=== PATIENT | female | born 1955 | race Caucasian/White ===

== ENCOUNTER 2020-11-15 14:05 | Observation (INO) | payer OTHER ==
--- OUTSIDE RECORDS SUMMARY | 2020-11-15 14:08 | XMS REPORT | Continuity of Care Document ---
:1955 Author Organization [facility] t Address [address] [place] [address] [address] [place] [address] Care Team Providers Name Role Phone Unavailable Unavailable Unavailable Problems This patient has no known problems. Allergies, Adverse Reactions, Alerts This patient has no known allergies or adverse reactions. Medications This patient has no known medications. Procedures This patient has no known procedures. Encounters Start End Encounter Admission Attending Care Care Encounter Source Date/Time Date/Time Type Type Clinicians Facility Department ID 2020-11-02 2020-11-02 Outpatient [facility] [id number] [facility] 00:00:00 00[facility]00[facility]00 [facility] 2020-10-02 2020-10-02 Outpatient [facility] [id number] [facility] St 00:00:00 00[facility]00[facility]00 [facility] 2020-10-02 2020-10-02 Outpatient [facility] [id number] [facility] St 00:00:00 00:00:00 [facility] - [facility] Results This patient has no known results.
--- NOTE | 2020-11-15 15:35 | RAD REPORT ---
EXAM DESCRIPTION: CT - C Spine Wo Con - 11/15/2020 3:12 pm CLINICAL HISTORY: Right arm radiculopathy. Neck pain COMPARISON: None. TECHNIQUE: Computed axial tomography of the cervical spine were obtained with sagittal and coronal r econstruction images generated and reviewed. All CT scans are performed using dose optimization technique as appropriate and may include automated exposure control or mA/KV adjustment according to patient size. FINDINGS: A cervical fracture is not seen. No dislocation. Slight anterior subluxation C3 on C4, C4 on C5 and C5 on C6 Spondylosis C3-4 results in moderate narrowing of left neural foramina. Small right posterolateral disc herniation C6-7 Scoliosis involves the neck IMPRESSION: A cervical fracture is not seen. Spondylosis resulting in moderate left foraminal stenosis C3-4 Small right posterolateral disc herniation C6-7 If the patient continues have symptoms to suggest spinal cord/spinal canal pathology then MRI would b e recommended.
--- NOTE | 2020-11-15 15:42 | RAD REPORT ---
EXAM DESCRIPTION: Ananya Single View11/15/2020 3:02 pm CLINICAL HISTORY: Chest pain COMPARISON: none FINDINGS: The lungs appear clear of acute infiltrate. The heart is normal size IMPRESSION: No acute abnormalities displayed
[2020-11-15 15:49] LABS: Basophils % 0.8 % (0-1.3); Hematocrit 49.5 % (36.0-45.0); Lymphocytes % 25.5 % (15.3-44.8); MPV 8.6 fL (7.6-11.3); RBC Red Blood Cell Count 5.36 M/uL (3.86-4.86)
[2020-11-15 15:52] LABS: Protime INR 0.99
[2020-11-15 16:15] LABS: ALT/SGPT 38 U/L (12-78); AST/SGOT 20 U/L (15-37); Albumin 3.9 g/dL (3.4-5.0); Alkaline Phosphatase 77 U/L (45-117); BUN Blood Urea Nitrogen 18 mg/dL (7-18); Bicarbonate 24 mmol/L (21-32); Bilirubin Direct 0.1 mg/dL (0-0.2); Bilirubin Total 0.4 mg/dL (0.2-1.0); Glucose Level 108 mg/dL (74-106); Lipase 218 U/L (73-393); Magnesium 2.2 mg/dL (1.8-2.4); NT PRO-BNP 41 pg/mL (<125); Potassium 3.9 mmol/L (3.5-5.1); Protein, Total 7.6 g/dL (6.4-8.2); Sodium Level 140 mmol/L (136-145); Troponin (Emerg Dept Use Only) < 0.02 ng/mL (0.0-0.045)
--- NOTE | 2020-11-15 16:15 | ER ---
Nurse's Notes [facility] Name: Renetta Mckeon Age: 65 yrs Sex: Female : 1955 Arrival Date: 11/15/2020 Time: 14:13 Bed 17 Private MD: Diagnosis: Chest pain, unspecified;Dizziness and giddiness;Syncope and collapse-near Presentation: 11/15 14:27 Chief complaint: Patient states: woke up with swollen glands in neck then became em dizzy/pale/sweaty, denies chest pain or fever, also reports right shoulder pain that radiates into back, is scheduled to have a study done on neck on Friday. Coronavirus screen: Client denies travel out of the [place] in the last 14 days. Ebola Screen: Patient negative for fever greater than or equal to 101.5 degrees Fahrenheit, and additional compatible Ebola Virus Disease symptoms Patient denies exposure to infectious person. Patient denies travel to an Ebola-affected area in the 21 days before illness onset. No symptoms or risks identified at this time. Initial Sepsis Screen: Does the patient meet any 2 criteria? No. Patient's initial sepsis screen is negative. Does the patient have a suspected source of infection? No. Patient's initial sepsis screen is negative. Risk Assessment: Do you want to hurt yourself or someone else? Patient reports no desire to harm self or others. Onset of symptoms was November 15, 2020. 14:27 Method Of Arrival: Wheelchair em 14:27 Acuity: LEE 3 em Triage Assessment: 15:55 General: Appears in no apparent distress. Behavior is calm, cooperative, appropriate tr6 for age. Pain: Complains of pain in c/o throat pain. Respiratory: No deficits noted. Breath sounds are clear. Historical: - Allergies: 14:32 No Known Allergies; em - PMHx: 14:32 COPD; Cataracts; em - PSHx: 14:32 Hysterectomy; Appendectomy; right breast augmentation; em - Immunization history:: Adult Immunizations up to date. - Social history:: Smoking status: Patient reports the use of cigarette tobacco products, smokes one pack cigarettes per day. - Family history:: not pertinent. Screenin:55 Abuse screen: Denies threats or abuse. Denies injuries from another. Nutritional tr6 screening: No deficits noted. Tuberculosis screening: No symptoms or risk factors identified. Fall Risk None identified. Assessment: 15:16 Reassessment: pt returned from CT. tr6 15:55 Cardiovascular: Capillary refill < 3 seconds. Respiratory: Airway is patent. tr6 Vital Signs: 14:27 BP 112 / 70; Pulse 70; Resp 18; Temp 96.8; Pulse Ox 98% on R/A; Weight 63.5 kg; Height em 5 ft. 2 in. (157.48 cm); Pain 7/10; 14:27 Body Mass Index 25.61 (63.50 kg, 157.48 cm) em ED Course: 14:13 Patient arrived in ED. ds1 14:30 Triage completed. em 14:32 Arm band placed on. em 14:34 Julian Gorman MD is Attending Physician. [facility] 14:40 Elva Manning, VALDEMAR is Primary Nurse. tr6 15:02 XRAY Chest (1 view) In Process Unspecified. EDMS 15:11 CT C Spine In Process Unspecified. EDMS 15:45 Flu Sent. em1 15:45 Strep Sent. em1 15:45 Initial lab(s) drawn, by nm, sent to lab. COVID swab sent to lab. Flu and/or RSV swab em1 sent to lab. Strep swab sent to lab. Inserted saline lock: 20 gauge in right forearm, using aseptic technique. Blood collected. 15:55 No provider procedures requiring assistance completed. tr6 15:56 Patient has correct armband on for positive identification. Bed in low position. Call tr6 light in reach. Side rails up X 1. 16:14 Eliel Buckley DO is Hospitalizing Provider. kevin 16:18 EKG done, by ED staff, reviewed by Julian Gorman MD. em1 16:42 US Carotid Artery Bilateral In Process Unspecified. EDMS 16:48 CT Aorta for Dissection In Process Unspecified. EDMS 16:48 Soft Tissue Neck W/Contr CT In Process Unspecified. EDMS 21:23 Patient admitted, IV remains in place. jm8 Administered Medications: 20:11 Drug: NS 0.9% 1000 ml Route: IV; Rate: 125 ml/hr; Site: right hand; 8 20:11 Drug: Rocephin (cefTRIAXone) 1 grams Route: IV; Rate: per protocol; Site: right hand; 8 20:11 Follow up: Response: No adverse reaction 8 20:11 Drug: Aspirin 162 mg Route: PO; 8 20:11 Follow up: Response: No adverse reaction [facility] Outcome: 16:15 Decision to Hospitalize by Provider. kevin 21:23 Admitted to Med/surg accompanied by tech, via wheelchair, with chart. [facility] 21:23 Condition: good 21:23 Instructed on the need for admit. 21:24 Patient left the ED. 8 Signatures: Dispatcher [employer] Julian Pederson MD MD cha Munoz, Edgar, RN RN Katina Calle ds1 John Kelly em1 Manpreet Arroyo RN RN Elva Bass RN RN tr6 Corrections: (The following items were deleted from the chart) 16:10 15:45 CORONAVIRUS+ drawn and sent. em1 [facility]
--- NOTE | 2020-11-15 16:16 | EDPHYS ---
Physician Documentation [facility] Name: Renetta Mckeon Age: 65 yrs Sex: Female : 1955 Arrival Date: 11/15/2020 Time: 14:13 Bed 17 Private MD: ED Physician Julian Gorman HPI: 11/15 16:10 This 65 yrs old Female presents to ER via Wheelchair with complaints of kevin Congestion, Dizziness. 16:10 The patient presents with dizziness, generalized weakness, lightheadedness. Onset: The kevin symptoms/episode began/occurred just prior to arrival. Context: occurred at home. Modifying factors: The symptoms are alleviated by nothing, the symptoms are aggravated by nothing. Associated signs and symptoms: Pertinent positives: chest pain. Severity of symptoms: At their worst the symptoms were mild in the emergency department the symptoms are unchanged. Patient's baseline: Neuro: alert and fully oriented. The patient has not experienced similar symptoms in the past. Historical: - Allergies: 14:32 No Known Allergies; em - PMHx: 14:32 COPD; Cataracts; em - PSHx: 14:32 Hysterectomy; Appendectomy; right breast augmentation; em - Immunization history:: Adult Immunizations up to date. - Social history:: Smoking status: Patient reports the use of cigarette tobacco products, smokes one pack cigarettes per day. - Family history:: not pertinent. ROS: 16:10 Constitutional: Negative for fever, chills, and weight loss, Eyes: Negative for injury, kevin pain, redness, and discharge, ENT: Negative for injury, pain, and discharge, Respiratory: Negative for shortness of breath, cough, wheezing, and pleuritic chest pain, Abdomen/GI: Negative for abdominal pain, nausea, vomiting, diarrhea, and constipation, Back: Negative for injury and pain, : Negative for injury, bleeding, discharge, and swelling, MS/Extremity: Negative for injury and deformity, Skin: Negative for injury, rash, and discoloration, Neuro: Negative for headache, weakness, numbness, tingling, and seizure, Psych: Negative for depression, anxiety, suicide ideation, homicidal ideation, and hallucinations, Allergy/Immunology: Negative for hives, rash, and allergies, Endocrine: Negative for neck swelling, polydipsia, polyuria, polyphagia, and marked weight changes. 16:10 Neck: Positive for pain at rest, swelling, swollen nodes, tenderness. 16:10 Cardiovascular: Positive for chest pain. Exam: 16:10 Constitutional: This is a well developed, well nourished patient who is awake, alert, kevin and in no acute distress. Head/Face: Normocephalic, atraumatic. Eyes: Pupils equal round and reactive to light, extra-ocular motions intact. Lids and lashes normal. Conjunctiva and sclera are non-icteric and not injected. Cornea within normal limits. Periorbital areas with no swelling, redness, or edema. ENT: Nares patent. No nasal discharge, no septal abnormalities noted. Tympanic membranes are normal and external auditory canals are clear. Oropharynx with no redness, swelling, or masses, exudates, or evidence of obstruction, uvula midline. Mucous membranes moist. Neck: Trachea midline, no thyromegaly or masses palpated, and no cervical lymphadenopathy. Supple, full range of motion without nuchal rigidity, or vertebral point tenderness. No Meningismus. Chest/axilla: Normal chest wall appearance and motion. Nontender with no deformity. No lesions are appreciated. Cardiovascular: Regular rate and rhythm with a normal S1 and S2. No gallops, murmurs, or rubs. Normal PMI, no JVD. No pulse deficits. Respiratory: Lungs have equal breath sounds bilaterally, clear to auscultation and percussion. No rales, rhonchi or wheezes noted. No increased work of breathing, no retractions or nasal flaring. Abdomen/GI: Soft, non-tender, with normal bowel sounds. No distension or tympany. No guarding or rebound. No evidence of tenderness throughout. Back: No spinal tenderness. No costovertebral tenderness. Full range of motion. Skin: Warm, dry with normal turgor. Normal color with no rashes, no lesions, and no evidence of cellulitis. MS/ Extremity: Pulses equal, no cyanosis. Neurovascular intact. Full, normal range of motion. Neuro: Awake and alert, GCS 15, oriented to person, place, time, and situation. Cranial nerves II-XII grossly intact. Motor strength 5/5 in all extremities. Sensory grossly intact. Cerebellar exam normal. Normal gait. Psych: Awake, alert, with orientation to person, place and time. Behavior, mood, and affect are within normal limits. 16:10 Musculoskeletal/extremity: DVT Exam: No signs of deep vein thrombosis. no pain, no swelling, no tenderness, negative Homans' sign noted on exam, no appreciated bluish discoloration, no erythema, no increased warmth. 16:39 ECG was reviewed by the Attending Physician. [facility] Vital Signs: 14:27 BP 112 / 70; Pulse 70; Resp 18; Temp 96.8; Pulse Ox 98% on R/A; Weight 63.5 kg; Height em 5 ft. 2 in. (157.48 cm); Pain 7/10; 14:27 Body Mass Index 25.61 (63.50 kg, 157.48 cm) em MDM: 14:34 Patient medically screened. [facility] 16:12 Differential diagnosis: cardiac arrhythmia, generalized weakness, idiopathic dizziness, kevin near-syncope. Data reviewed: vital signs, nurses notes, lab test result(s), EKG, radiologic studies, CT scan, plain films. Data interpreted: monitoring and evaluation advisor: rate is 70 beats/min, rhythm is regular, Pulse oximetry: on room air is 98 %. Test interpretation: by ED physician or midlevel provider: ECG, plain radiologic studies. Counseling: I had a detailed discussion with the patient and/or guardian regarding: the historical points, exam findings, and any diagnostic results supporting the discharge/admit diagnosis, lab results, radiology results, the need for further work-up and treatment in the hospital. 11/15 14:47 Order name: Basic Metabolic Panel; Complete Time: 16:34 [facility] 11/15 14:47 Order name: CBC with Diff; Complete Time: 16:03 [facility] 11/15 14:47 Order name: LFT's; Complete Time: 16:34 [facility] 11/15 14:47 Order name: Magnesium; Complete Time: 16:34 [facility] 11/15 14:47 Order name: NT PRO-BNP; Complete Time: 16:34 [facility] 11/15 14:47 Order name: PT-INR; Complete Time: 16:03 [facility] 11/15 14:47 Order name: Troponin (emerg Dept Use Only); Complete Time: 16:34 [facility] 11/15 14:47 Order name: Urine Culture [facility] 11/15 14:47 Order name: Lipase; Complete Time: 16:34 [facility] 11/15 14:47 Order name: Flu [facility] 11/15 14:47 Order name: Strep; Complete Time: 16:34 [facility] 11/15 16:08 Order name: Blood Culture Adult (2) [facility] 11/15 16:17 Order name: Throat Culture [facility] 11/15 14:47 Order name: XRAY Chest (1 view); Complete Time: 16:03 [facility] 11/15 14:47 Order name: EKG; Complete Time: 14:47 [facility] 11/15 14:47 Order name: Cardiac monitoring; Complete Time: 15:52 [facility] 11/15 14:47 Order name: EKG - Nurse/Tech; Complete Time: 16:18 [facility] 11/15 14:47 Order name: IV Saline Lock; Complete Time: 15:45 [facility] 11/15 14:47 Order name: Labs collected and sent; Complete Time: 15:45 [facility] 11/15 14:47 Order name: CT C Spine; Complete Time: 16:03 [facility] 11/15 16:08 Order name: US Carotid Artery Bilateral [facility] 11/15 16:08 Order name: CT Aorta for Dissection [facility] 11/15 16:38 Order name: Soft Tissue Neck W/Contr CT [facility] 11/15 16:40 Order name: EKG; Complete Time: 16:41 [facility] 11/15 16:55 Order name: COVID-19/FLU A+B [facility] 11/15 20:44 Order name: Troponin I [facility] 11/15 14:47 Order name: O2 Per Protocol; Complete Time: 15:52 [facility] 11/15 14:47 Order name: O2 Sat Monitoring; Complete Time: 15:52 [facility] 11/15 16:40 Order name: EKG - Nurse/Tech; Complete Time: 19:40 [facility] EC:39 Rate is 54 beats/min. Rhythm is regular. QRS [place] is Normal. VT interval is normal. QRS kevin interval is normal. QT interval is normal. No Q waves. T waves are Normal. No ST changes noted. Clinical impression: NSR w/ Non-specific ST/T Changes and Sinus bradycardia. Administered Medications: 20:11 Drug: NS 0.9% 1000 ml Route: IV; Rate: 125 ml/hr; Site: right hand; jm8 20:11 Drug: Rocephin (cefTRIAXone) 1 grams Route: IV; Rate: per protocol; Site: right hand; jm8 20:11 Follow up: Response: No adverse reaction 8 20:11 Drug: Aspirin 162 mg Route: PO; jm8 20:11 Follow up: Response: No adverse reaction jm8 Disposition: 11/15/20 16:15 Hospitalization ordered by Eliel Buckley for Observation. Preliminary diagnosis are Chest pain, unspecified, Dizziness and giddiness, Syncope and collapse - near. - Bed requested for Telemetry/MedSurg (observation). - Status is Observation. jm8 - Condition is Stable. - Problem is new. - Symptoms have improved. Signatures: Dispatcher [employer] [facility] Radha Post RN RN dw Anderson, Corey, MD MD cha Munoz, Edgar, RN Manpreet Aguilar RN VALDEMAR sandy Corrections: (The following items were deleted from the chart) 16:10 14:47 CORONAVIRUS+MR.LAB.BRZ ordered. [facility] 18:16 16:15 Hospitalization Ordered by Eliel Buckley DO for Observation. Preliminary diagnosis is Chest pain, unspecified; Dizziness and giddiness; Syncope and collapse - near. Bed requested for Telemetry/MedSurg (observation). Status is Observation. Condition is Stable. Problem is new. Symptoms have improved. [facility] 18:16 18:16 11/15/2020 16:15 Hospitalization Ordered by Eliel Buckley DO for Observation. Preliminary diagnosis is Chest pain, unspecified; Dizziness and giddiness; Syncope and collapse - near. Bed requested for Telemetry/MedSurg (observation). Status is Observation. Condition is Stable. Problem is new. Symptoms have improved. 21:24 18:16 11/15/2020 16:15 Hospitalization Ordered by Eliel Buckley DO for Observation. [facility] Preliminary diagnosis is Chest pain, unspecified; Dizziness and giddiness; Syncope and collapse - near. Bed requested for Telemetry/MedSurg (observation). Status is Observation. Condition is Stable. Problem is new. Symptoms have improved.
[2020-11-15 16:55] LABS: SARS-COV-2 RT PCR NEGATIVE (NEGATIVE)
--- NOTE | 2020-11-15 17:04 | RAD REPORT ---
EXAM DESCRIPTION: USCarotid Artery Bilateral11/15/2020 4:42 pm CLINICAL HISTORY: Dizziness COMPARISON: None FINDINGS: The velocity of the right internal carotid artery equals 109 cm/sec. The right ICA/CCA rat io 2 The velocity of the left internal carotid artery equals 100 cm/sec. The left ICA/CCA ratio 1.4 Mild plaque is present within the common and internal carotid arteries. Marked plaque within the left external carotid artery The vertebral arteries demonstrate antegrade flow IMPRESSION: Mild plaque within the common and internal carotid arteries without evidence of a hemody namically significant stenosis Severe stenosis left external carotid artery NASCET criteria used. Mild 0-49% stenosis Moderate 50-69% stenosis Severe 70-99% stenosis
--- NOTE | 2020-11-15 17:17 | RAD REPORT ---
EXAM DESCRIPTION: CT - Angio Aorta For Dissection - 11/15/2020 4:48 pm CLINICAL HISTORY: . Chest and abdominal pain COMPARISON: None TECHNIQUE: Computed tomography angiography of the chest, abdomen pelvis were obtained. 100 cc Isovue 370 was administered intravenously. Coronal and sagittal reconstruction were performed. MIP 3D reconstruction was performed All CT scans are performed using dose optimization technique as appropriate and may include automated exposure control or mA/KV adjustment according to patient size. FINDINGS: An aortic dissection is not seen. An aortic aneurysm is not displayed. The celiac, SMA and EVANS are patent . Mild calcified plaque is present within the arteries. A lung consolidation is not present. A pericardial effusion is not seen. A pleural effusion is not n oted. Fatty liver Spleen, pancreas adrenals kidneys demonstrate no significant abnormality. No evidence of diverticulitis. IMPRESSION: Negative for an aortic dissection.
--- NOTE | 2020-11-15 17:24 | RAD REPORT ---
EXAM DESCRIPTION: CT - Soft Tissue Neck W/Contr - 11/15/2020 4:48 pm CLINICAL HISTORY: Neck pain/facial pain COMPARISON: None. TECHNIQUE: Computed axial tomography of the neck was obtained. 50 cc Isovue 300 was administered in travenously. Coronal and sagittal reconstruction was performed. All CT scans are performed using dose optimization technique as appropriate and may include automated exposure control or mA/KV adjustment according to patient size. FINDINGS: The pharynx, tongue base, larynx and subglottic trachea appear unremarkable The parotid, submandibular and thyroid glands appear unremarkable. Subcentimeter lymph nodes bilaterally Moderate ethmoid sinusitis. Marked stenosis proximal left external carotid artery Scoliosis involves cervical spine IMPRESSION: Moderate ethmoid sinusitis. Marked stenosis proximal left external carotid artery
[2020-11-15] MEDS ORDERED: ALBUTEROL 2.5 MG/3 ML NEB SOL NEB PRN (17:45)
[2020-11-15] MEDS ORDERED: ONDANSETRON 4 MG/2 ML VIAL IV PRN (17:45)
[2020-11-15] MEDS ORDERED: ACETAMINOPHEN 500 MG TAB PO PRN (17:45)
[2020-11-15] MEDS ORDERED: TRAMADOL HCL 50 MG TAB PO PRN (17:53)
--- NOTE | 2020-11-15 17:55 | P.HP ---
Certification for Inpatient Patient admitted to: Observation With expected LOS: <2 Midnights Patient will require the following post-hospital care: None Practitioner: I am a practitioner with admitting privileges, knowledge of patient current condition, hospital course, and medical plan of care. Services: Services provided to patient in accordance with Admission requirements found in Title 42 Section 412.3 of the Code of Federal Regulations Patient History Date of Service: 11/15/20 Reason for admission: Chest pain History of Present Illness: Patient is a 65-year-old female with a PMHx significant for COPD and nicotine dependence who presents with complaint of chest pain located in the right chest wall onset this morning. Patient also reports neck pain and swelling. Patient rated chest pain as 7/10 in severity and described pain as sharp in quality. Patient reports that neck pain radiates to her right shoulder. Patient reports associated signs or symptoms of headache, facial pain, dizziness, nausea, diaphoresis, sore throat and cough. Patient denies any other sign and symptoms. Symptoms are aggravated or relived by nothing. Patient decided to present to the hospital due to worsening symptoms. Home medications list reviewed: No - Social History Smoking Status: Current every day smoker Smoking therapy provided: Yes Patient receptive to therapy: Yes Alcohol use: Yes CD- Drugs: No Place of Residence: Home Review of Systems General: Unremarkable (Diaphoresis ) Eyes: Unremarkable ENT: Nose Congestion, Throat Pain, Other (Neck pain\swelling, facial pain ) Respiratory: Cough Cardiovascular: Chest Pain, Other (Dizziness ) Gastrointestinal: Nausea Genitourinary: Unremarkable Musculoskeletal: Shoulder Pain Integumentary: Unremarkable Neurological: Unremarkable Lymphatics: Unremarkable Physical Examination - Physical Exam General: Alert, In no apparent distress, Oriented x3 HEENT: Atraumatic, PERRLA, Mucous membr. moist/pink, EOMI, Sclerae nonicteric Neck: 2+ carotid pulse no bruit, No LAD, Other (Neck swelling ), Without JVD or thyroid abnormality Respiratory: Clear to auscultation bilaterally, Normal air movement Cardiovascular: No edema, Regular rate/rhythm, Normal S1 S2 Capillary refill: <2 Seconds Gastrointestinal: Normal bowel sounds, Non-distended, No tenderness Musculoskeletal: No tenderness, Tenderness (Right shoulder tenderness ) Integumentary: No rashes Neurological: Normal gait, Normal speech, Normal strength at 5/5 x4 extr, Normal tone, Normal affect Lymphatics: Other (Cervical lymphadenopathy ) External genitalia: Deferred Rectal: Deferred - Studies Laboratory Data (last 24 hrs) 11/15/20 15:35: PT 11.4, INR 0.99 11/15/20 15:35: WBC 7.80, Hgb 16.2 H, Hct 49.5 H, Plt Count 241 11/15/20 15:35: Sodium 140, Potassium 3.9, BUN 18, Creatinine 0.68, Glucose 108 H, Magnesium 2.2, Total Bilirubin 0.4, AST 20, ALT 38, Alkaline Phosphatase 77, Lipase 218 Microbiology Data (last 24 hrs): 11/15/20 15:40 Throat Group A Streptococcus Rapid Screen - Final Assessment and Plan - Plan --Chest pain. To rule out ACS. Chest pain likely atypical. We will trend troponin. Echocardiogram pending. Telemetry to monitor for any significant arrhythmia. Continue supportive care. --Neck\facial pain. Throat cultures pending. CT neck indicates Moderate ethmoid sinusitis. Patient placed on nasal steroid. We will manage pain with current pain medication regimen. --Left carotid artery stenosis. As noted on imaging. Patient is asymptomatic. Patient to follow up with a vascular surgeon O/P. Patient placed on aspirin and statin. --COPD. Stable. Neb treatment with albuterol prn. --PERERA. Tylenol prn --Nausea. Antiemetics on board. --Nicotine dependence. Patient counseled on tobacco cessation. Refuses nicotine patch. --Moderate left Cervical foraminal stenosis. As noted on imaging. Patient placed on steroid and flexeril prn. Patient to f\u with a Neurosurgeon surgeon O\P. --DVT prophylaxis with Heparin subQ Discharge Plan: Home Plan to discharge in: 48 Hours - Advance Directives Does patient have a Living Will: No Does patient have a Durable POA for Healthcare: No - Code Status/Comfort Care Code Status Assessed: Yes Code Status: Full Code Critical Care: No
[2020-11-15] MEDS ORDERED: CYCLOBENZAPRINE 10 MG TAB PO PRN (18:10)
[2020-11-15] MEDS ORDERED: ASPIRIN 81 MG CHEWABLE TABLET ONE (20:02)
[2020-11-15] MEDS ORDERED: NA CHLORIDE 0.9% 1,000 ML ONE (20:02)
[2020-11-15] MEDS ORDERED: CEFTRIAXONE/SWI 1gm 1 GM/10 ML SYR ONE (20:02)
[2020-11-15] MEDS ORDERED: ATORVASTATIN 40 MG TAB PO SCH (21:00)
[2020-11-15] MEDS: FLUTICASONE 50MCG NASAL SPRAY NAS SCH (21:00)
[2020-11-15 21:38] VITALS: BMI 26.0
[2020-11-15 21:59] LABS: Thyroid Stimulating Hormone 3.37 uIU/mL (0.360-3.740)
[2020-11-15 23:09] LABS: Urine Appearance CLEAR (Clear); Urine Bilirubin NEGATIVE (Negataive); Urine Blood NEGATIVE (Negative); Urine Color YELLOW (Yellow); Urine Glucose NEGATIVE (Negative); Urine Protein NEGATIVE (Negative); Urine Specific Gravity >=1.030 (1.005-1.030); Urine Urobilinogen 0.2 mg/dL (0.2-1.0)
[2020-11-15 23:18] LABS: Urine Microscopic Reflex NO UMIC
[2020-11-16] MEDS: HEPARIN 5000 UNIT/ML 1 ML VIAL SQ SCH ×2 (01:01→08:17)
[2020-11-16] MEDS: METHYLPREDNISOLONE 40 MG INJ IV SCH ×2 (01:01→08:17)
[2020-11-16 06:33] LABS: Potassium 4.4 mmol/L (3.5-5.1)
[2020-11-16 08:11] VITALS: BP 158/70; TEMP 97.2
[2020-11-16] MEDS: FLUTICASONE 50MCG NASAL SPRAY NAS SCH (08:19)
--- NOTE | 2020-11-16 08:21 | P.DS ---
Admission Date: 11/15/20 Discharge Date: 11/16/20 Primary Care Provider: Dr. Garcia Disposition: ROUTINE DISCHARGE Discharge Condition: GOOD Reason for Admission: Chest pain Consultations: Cardiology-Dr. Puga Procedures: COVID: Negative CT scan: CLINICAL HISTORY: Right arm radiculopathy. Neck pain COMPARISON: None. TECHNIQUE: Computed axial tomography of the cervical spine were obtained with sagittal and coronal reconstruction images generated and reviewed. All CT scans are performed using dose optimization technique as appropriate and may include automated exposure control or mA/KV adjustment according to patient size. FINDINGS: A cervical fracture is not seen. No dislocation. Slight anterior subluxation C3 on C4, C4 on C5 and C5 on C6 Spondylosis C3-4 results in moderate narrowing of left neural foramina. Small right posterolateral disc herniation C6-7 Scoliosis involves the neck IMPRESSION: A cervical fracture is not seen. Spondylosis resulting in moderate left foraminal stenosis C3-4 Small right posterolateral disc herniation C6-7 Carotid doppler: FINDINGS: The velocity of the right internal carotid artery equals 109 cm/sec. The right ICA/CCA ratio 2 The velocity of the left internal carotid artery equals 100 cm/sec. The left ICA/CCA ratio 1.4 Mild plaque is present within the common and internal carotid arteries. Marked plaque within the left external carotid artery The vertebral arteries demonstrate antegrade flow IMPRESSION: Mild plaque within the common and internal carotid arteries without evidence of a hemodynamically significant stenosis Severe stenosis left external carotid artery NASCET criteria used. Mild 0-49% stenosis Moderate 50-69% stenosis Severe 70-99% stenosis CT neck: FINDINGS: The pharynx, tongue base, larynx and subglottic trachea appear unremarkable The parotid, submandibular and thyroid glands appear unremarkable. Subcentimeter lymph nodes bilaterally Moderate ethmoid sinusitis. Marked stenosis proximal left external carotid artery Scoliosis involves cervical spine IMPRESSION: Moderate ethmoid sinusitis. Marked stenosis proximal left external carotid artery CT Dissection: FINDINGS: An aortic dissection is not seen. An aortic aneurysm is not displayed. The celiac, SMA and EVANS are patent . Mild calcified plaque is present within the arteries. A lung consolidation is not present. A pericardial effusion is not seen. A pleural effusion is not noted. Fatty liver Spleen, pancreas adrenals kidneys demonstrate no significant abnormality. No evidence of diverticulitis. IMPRESSION: Negative for an aortic dissection. Medical Problem List: Chest pain, atypical Neck pain likely secondary to spondylosis resulting in moderate left foraminal stenosis at C3-C4 and a small right posterior lateral disc herniation at C6-7 Left carotid arterial stenosis with carotid Doppler showing severe stenosis to the left external carotid artery COPD Tobacco abuse Chronic sinusitis Prediabetes Hyperlipidemia Elevated blood pressure without hypertension Brief History of Present Illness: 65-year-old female with a PMHx significant for COPD and nicotine dependence who presents with complaint of chest pain located in the right chest wall onset this morning. Patient also reports neck pain and swelling. Patient rated chest pain as 7/10 in severity and described pain as sharp in quality. Patient reports that neck pain radiates to her right shoulder. Patient reports associated signs or symptoms of headache, facial pain, dizziness, nausea, diaphoresis, sore throat and cough. Patient denies any other sign and symptoms. Symptoms are aggravated or relived by nothing. Patient admitted for further evaluation and treatment. Hospital Course: Patient presented with chest pain. This was atypical. Cardiac enzymes unremarkable. No significant EKG changes noted. Patient was seen and evaluated by cardiology. Carotid Doppler showed severe stenosis to the left external carotid artery. CT spine showed cervical spondylosis and disc herniation as well. Cardiology recommended no further inpatient intervention at this time. Due to her other findings of carotid stenosis patient will need follow-up with cardiology within 1 week. Cardiology recommends outpatient cardiac stress test to further evaluate her condition. If cardiac stress test abnormal patient will require heart catheterization and cervical angiogram to further evaluate her carotid disease. If cardiac stress test negative then patient will need cervical angiogram to further evaluate her carotid disease. At discharge patient will continue with aspirin 80 mg daily, folic acid 1 mg daily, Lipitor 10 mg daily and fish oil 1000 mg 1 pill twice daily. Follow-up with cardiology with above recommendations within 1 week. Recommend follow-up with PCP in 1 week to further address her medical issues. Patient reports history of prediabetes. Recent A1c was 6.2. Education on prediabetes provided. Recommend to recheck hemoglobin A1c in 3 months to monitor her progress. If hemoglobin A1c greater than 6.5, then this will categorize her as diabetic. This can be monitored closely by her PCP. Education on prediabetes and diabetes provided. Patient with elevated blood pressure without hypertension. Recommend to monitor blood pressure daily. She is to keep a log of her blood pressures. If her blood pressures remain above 140/90 then cardiology or her PCP will consider adding medication. Education on hypertension provided. Follow-up with cardiology and PCP as directed above to further monitor closely. Patient reports history of hyperlipidemia. Due to her carotid arterial disease, will recommend to start Lipitor 10 mg daily and fish oil 1000 mg 1 pill twice daily. Recommend to recheck fasting lipid panel in 4 to 6 weeks to monitor her progress. Further adjustment in medication can be done by her PCP or cardiology. Patient with COPD. Patient takes Breo and albuterol. Patient admits not taking Breo on a regular basis. Compliance with medication address in detail. At [facility] she will continue with her Breo and albuterol as directed. Patient with tobacco abuse. Tobacco cessation addressed in detail. The importance of tobacco cessation was addressed especially with the above findings. Will provide nicotine patch to help with cessation. This can be further addressed by her PCP. Patient also reported neck pain. Cervical spondylosis identified with noted m oderate left foraminal stenosis to the C3-C4 region and small right posterior lateral disc herniation to the C6-C7 region. Patient will need to follow-up with her PCP to further address. Patient will require MRI of the neck to further evaluate. Patient may benefit with neurosurgery evaluation with possible pain management referral in the future. Patient will need cardiology work-up first before intervention related to her neck. CT scan also revealed fatty liver. Education on fatty liver will be provided. This can be further addressed by her PCP. Patient with chronic sinusitis. Patient may take Flonase 1 spray per nostril twice daily. This can be further monitored and addressed as an outpatient. Vital Signs/Physical Exam: Temp Pulse Resp BP Pulse Ox 97.2 F 62 14 158/70 H 93 11/16/20 08:00 11/16/20 08:00 11/16/20 08:00 11/16/20 08:00 11/16/20 08:00 General: Alert, In no apparent distress, Oriented x3, Cooperative HEENT: Atraumatic Neck: Supple Respiratory: Clear to auscultation bilaterally, Normal air movement Cardiovascular: Normal pulses, Regular rate/rhythm Gastrointestinal: Normal bowel sounds, Soft and benign, Non-distended, No guarding Integumentary: No tenderness/swelling Neurological: Normal speech, Normal strength at 5/5 x4 extr, Normal tone, Normal affect Laboratory Data at Discharge: WBC 7.80 K/uL (4.3-10.9) 05/12/21 15:35 Hgb 16.2 g/dL (12.0-15.0) H 11/15/20 15:35 Hct 49.5 % (36.0-45.0) H 11/15/20 15:35 Plt Count 241 K/uL (152-406) 11/15/20 15:35 PT 11.4 SECONDS (9.5-12.5) 11/15/20 15:35 INR 0.99 11/15/20 15:35 Sodium 140 mmol/L (136-145) 11/16/20 06:04 Potassium 4.4 mmol/L (3.5-5.1) 11/16/20 06:04 BUN 18 mg/dL (7-18) 11/16/20 06:04 Creatinine 0.88 mg/dL (0.55-1.3) 11/16/20 06:04 Glucose 147 mg/dL (74-106) H 11/16/20 06:04 Magnesium 2.2 mg/dL (1.8-2.4) 11/15/20 15:35 Total Bilirubin 0.4 mg/dL (0.2-1.0) 11/15/20 15:35 AST 20 U/L (15-37) 11/15/20 15:35 ALT 38 U/L (12-78) 11/15/20 15:35 Alkaline Phosphatase 77 U/L (45-117) 11/15/20 15:35 Troponin I < 0.02 ng/mL (0.0-0.045) 11/16/20 05:38 Lipase 218 U/L (73-393) 11/15/20 15:35 Home Medications: Albuterol Inhaler [Ventolin Inhaler*] 2 puff IH TID PRN #1 hfa.aer.ad 11/16/20 Aspirin [Aspirin EC 81 MG] 81 mg PO DAILY #90 tablet.dr 11/16/20 Atorvastatin Calcium [Lipitor] 10 mg PO BEDTIME #30 tab 11/16/20 Docosahexanoic AC/Epa [Fish Oil 1,000 MG CAP] 1 cap PO BID #60 cap 11/16/20 Fluticasone [Flonase 50mcg Nasal [place]] 1 sprays NS BID #1 btl 11/16/20 Fluticasone/Vilanterol [Breo Ellipta 100-25 Mcg INH] 1 each IH DAILY #1 aer.pow.ba 11/16/20 Folic Acid 1 mg PO DAILY #90 tablet 11/16/20 Nicotine [Nicoderm] 1 patch TD DAILY #30 patch.td24 11/16/20 New Medications: Aspirin [Aspirin EC 81 MG] 81 mg PO DAILY #90 tablet. Fluticasone/Vilanterol [Breo Ellipta 100-25 Mcg INH] 1 each IH DAILY #1 aer.pow.ba Docosahexanoic AC/Epa [Fish Oil 1,000 MG CAP] 1 cap PO BID #60 cap Fluticasone [Flonase 50mcg Nasal [place]] 1 sprays NS BID #1 btl Folic Acid 1 mg PO DAILY #90 tablet Atorvastatin Calcium [Lipitor] 10 mg PO BEDTIME #30 tab Nicotine [Nicoderm] 1 patch TD DAILY #30 patch.td24 Albuterol Inhaler [Ventolin Inhaler*] 2 puff IH TID PRN #1 hfa.aer.ad PRN Reason: Shortness Of Breath Physician Discharge Instructions: Patient presented with chest pain. This was atypical. Cardiac enzymes unremarkable. No significant EKG changes noted. Patient was seen and evaluated by cardiology. Carotid Doppler showed severe stenosis to the left external car otid artery. CT spine showed cervical spondylosis and disc herniation as well. Cardiology recommended no further inpatient intervention at this time. Due to her other findings of carotid stenosis patient will need follow-up with cardiology within 1 week to further address this condition. Cardiology recommends outpatient cardiac stress test to further evaluate her condition. If cardiac stress test abnormal patient will require heart catheterization and cervical angiogram to further evaluate her carotid disease. If cardiac stress test negative then patient will need cervical angiogram to further evaluate her carotid disease. At discharge patient will continue with aspirin 80 mg daily, folic acid 1 mg daily, Lipitor 10 mg daily and fish oil 1000 mg 1 pill twice daily. Follow-up with cardiology with above recommendations within 1 week. Recommend follow-up with PCP in 1 week to further address her medical issues. Patient reports history of prediabetes. Recent A1c was 6.2. Education on prediabetes provided. Recommend to recheck hemoglobin A1c in 3 months to monitor her progress. If hemoglobin A1c greater than 6.5, then this will categorize her as diabetic. This can be monitored closely by her PCP. Education on prediabetes and diabetes provided. Patient with elevated blood pressure without hypertension. Recommend to monitor blood pressure daily. She is to keep a log of her blood pressures. If her blood pressures remain above 140/90 then cardiology or her PCP will consider adding medication. Education on hypertension provided. Follow-up with cardiology and PCP as directed above to further monitor closely. Patient reports history of hyperlipidemia. Due to her carotid arterial disease, will recommend to start Lipitor 10 mg daily and fish oil 1000 mg 1 pill twice daily. Recommend to recheck fasting lipid panel in 4 to 6 weeks to monitor her progress. Further adjustment in medication can be done by her PCP or cardiology. Patient with COPD. Patient takes Breo and albuterol. Patient admits not taking Breo on a regular basis. Compliance with medication address in detail. At discharge she will continue with her Breo and albuterol as directed. Patient with tobacco abuse. Tobacco cessation addressed in detail. The importance of tobacco cessation was addressed especially with the above findings. Will provide nicotine patch to help with cessation. This can be further addressed by her PCP. Patient also reported neck pain. Cervical spondylosis identified with noted moderate left foraminal stenosis to the C3-C4 region and small right posterior lateral disc herniation to the C6-C7 region. Patient will need to follow-up with her PCP to further address. Patient will require MRI of the neck to further evaluate. Patient may benefit with neurosurgery evaluation with possible pain management referral in the future. Patient will need cardiology work-up first before intervention related to her neck. CT scan also revealed fatty liver. Education on fatty liver will be provided. This can be further addressed by her PCP. Patient with chronic sinusitis. Patient may take Flonase 1 spray per nostril twice daily. This can be further monitored and addressed as an outpatient. Diet: AHA Activity: Ad peter Followup: Olaf Garcia, [Primary Care Provider] - Time spent managing pt's care (in minutes): 55
[2020-11-16] MEDS ORDERED: ASPIRIN 81 MG CHEWABLE TABLET PO SCH (09:00)
[2020-11-16 10:32] VITALS: O2SAT 95
--- NOTE | 2020-11-17 08:16 | ECHO ---
HEIGHT: 5 ft 2 in WEIGHT: 142 lb 6 oz DATE OF STUDY: 11/16/[address]: Miguel Hayes 2-DIMENSIONAL: YES M.MODE: YES DOPPLER: NO COLOR FLOW: NO TDS: YES PORTABLE: NO DEFINITY: NO BUBBLE STUDY: NO DIAGNOSIS: CHEST PAIN CARDIAC HISTORY: CATHERIZATION: NO SURGERY: NO PROSTHETIC VALVE: NO PACEMAKER: NO MEASUREMENTS (cm) DIASTOLIC (NORMALS) SYSTOLIC (NORMALS) IVSd 0.7 (0.6-1.2) LA Diam (1.9-4.0) LVEF 79% LVIDd 4.6 (3.5-5.7) LVIDs 2.4 (2.0-3.5) %FS 47% LVPWd 0.7 (0.6-1.2) Ao Diam 2.5 (2.0-3.7) 2 DIMENSIONAL ASSESSMENT: RIGHT ATRIUM: NORMAL LEFT ATRIUM: NORMAL RIGHT VENTRICLE: NORMAL LEFT VENTRICLE: NORMAL TRICUSPID VALVE: NORMAL MITRAL VALVE: NORMAL PULMONIC VALVE: NORMAL AORTIC VALVE: NORMAL PERICARDIAL EFFUSION: NONE AORTIC ROOT: NORMAL LEFT VENTRICULAR WALL MOTION: NORMAL DOPPLER/COLOR FLOW: NORMAL COMMENTS: NORMAL LEFT VENTRICULAR EJEJECTION FRACTION 60-65%. NORMAL STUDY. HYPERDYNAMIC LEFT VENTRICLE. TECHNOLOGIST: Tony CARRASCO
--- NOTE | 2020-11-21 14:14 | CON ---
Date of Consultation: 11/15/2020 Reason For Consultation: Carotid stenosis. History Of Present Illness: Ms. Mckeon is a 65-year-old woman, who came into the hospital with diz ziness, lightheadedness, and general weakness that had been going on for about a day. Also has some atypical chest pain. No nausea, vomiting, diaphoresis, PND, orthopnea, pedal edema, palpitation, or syncope. She was found incidentally to have a carotid stenosis and I was consulted. Her echocardiog dianne was normal. Allergies: NONE. Past Medical History: Includes hysterectomy, appendectomy, right breast augmentation, COPD, and melodie racts. Review of Systems: Negative. Social History: Positive for tobacco. Family History: Positive for heart disease. Medications: Listed by Dr. Buckley. Physical Examination: Vital Signs: Stable. She was afebrile, sinus rhythm. HEENT: Negative. Neck: Supple with no bruit. Chest: Clear to auscultation and percussion. Cardiac: Revealed a regular rhythm and rate. No murmurs, gallops, or rubs. Abdomen: Benign. Extremities: Revealed no clubbing, cyanosis, or edema. Diagnostic Data: As stated earlier. Her carotid Doppler was positive for an external carotid artery stenosis. Her common carotid and internal carotid were actually patent. Impression And Plan: Carotid stenosis. This needs medical therapy only. She is on aspirin and Lipi tor and I agree with that. I think because she has carotid artery stenosis, I think we should have h er do an outpatient stress test appointment and make sure there are no other issues as far as atheros clerosis is concerned. The patient can go home whenever it is okay with Dr. Buckley. I will see her in the office in the near future. YAJAIRA/AUGUSTINEL Voice ID: [id number] Report ID: [id number]
== END 2020-11-16 10:40 | disposition home or self-care (01) ==
LOC: ER 14:05 → INTOOBSV 17:23 → ERHOLD 17:23 → 2ND 19:16
PROVIDERS: ADMIT Family Medicine; ATTEND Family Medicine
DX: R07.89 Other chest pain (principal); M54.2 Cervicalgia; M47.812 Spondylosis without myelopathy or radiculopathy, cervical region; M48.02 Spinal stenosis, cervical region; M50.223 Other cervical disc displacement at C6-C7 level; J44.9 Chronic obstructive pulmonary disease, unspecified; J32.2 Chronic ethmoidal sinusitis; R73.03 Prediabetes; E78.5 Hyperlipidemia, unspecified; R03.0 Elevated blood-pressure reading, without diagnosis of hypertension; I65.22 Occlusion and stenosis of left carotid artery; M41.82 Other forms of scoliosis, cervical region; R51.9 Headache, unspecified; R11.0 Nausea; J02.9 Acute pharyngitis, unspecified; R05 Cough; R55 Syncope and collapse; R42 Dizziness and giddiness; K76.0 Fatty (change of) liver, not elsewhere classified; F17.210 Nicotine dependence, cigarettes, uncomplicated; Z71.6 Tobacco abuse counseling; Z20.822 Contact with and (suspected) exposure to COVID-19
CPT/HCPCS: 93307; 87040 ×2; 87070; 87088; 85025; 87086; 80048 ×2; 36415 ×2; 83735; 82550; 85610; 80076; 87081; 84443; 87077; 87186; 81003; 84484 ×4; 84439; 83690; 83880 ×2; 0240U; 72125; 70491; 71275; 74175; 71045; 93880; 96374; 99285; Q9967; J1644 ×2; J0696; J7030; J2920 ×2; G0378

== ENCOUNTER 2020-12-07 08:18 | Day surgery (SDC) | payer OTHER ==
[2020-12-05 14:05] LABS: Absolute Lymphocytes (CBC) 2.9 K/uL (0.7-4.9); Basophils % 0.5 % (0-1.3); Hematocrit 48.5 % (36.0-45.0); Lymphocytes % 30.6 % (15.3-44.8); MPV 8.7 fL (7.6-11.3); RBC Red Blood Cell Count 5.25 M/uL (3.86-4.86)
[2020-12-05 14:18] LABS: BUN Blood Urea Nitrogen 18 mg/dL (7-18); Bicarbonate 32 mmol/L (21-32); Glucose Level 86 mg/dL (74-106); Potassium 4.2 mmol/L (3.5-5.1); Sodium Level 143 mmol/L (136-145)
[2020-12-05 14:21] LABS: Protime INR 0.93
[~2020-12-07 08:18] MED LIST: HEPA 1000U/500MLS 1,000 UNIT/500 ML BAG IV ONE
[2020-12-07] MEDS ORDERED: NA CHLORIDE 0.9% 500 ML ONE (08:41)
[2020-12-07] MEDS ORDERED: FENTANYL CITR 100 MCG/2 ML ONE (10:43)
[2020-12-07] MEDS ORDERED: ATROPINE SULF 1 MG/10 ML SYR IV ONE (10:43)
[2020-12-07] MEDS ORDERED: NA CHLORIDE 0.9% 50 ML ONE (10:43)
[2020-12-07] MEDS ORDERED: MIDAZOLAM HCL 2 MG/2 ML INJ ONE ×2 (10:43→10:48)
[2020-12-07] MEDS ORDERED: NITROGLYCERIN 100 MCG/ML SYR (for cath lab use only) IV ONE (11:01)
[2020-12-07] MEDS ORDERED: NITROGLYCERIN/D5W 25 MG/250 ML BTL IV ONE (11:01)
[2020-12-07] MEDS ORDERED: PRASUGREL (EFFIENT) 10 MG TAB ONE (11:15)
[2020-12-07] MEDS ORDERED: ASPIRIN 325 MG TAB ONE (11:15)
--- NOTE | 2020-12-07 12:18 | OP ---
Date of Procedure: 12/07/2020 Surgeon: Los Puga MD Project Estimator: Johnnie Kapadia. Procedures Performed: Left heart catheterization, selective coronary arteriogram, primary RCA stent. Indication: Abnormal stress test, chest pain. History Of Present Illness: Ms. Mckeon is 65, had been to the hospital with recent testing showing significant carotid stenosis, on the external carotid had atypical chest pain and an outpatient stre ss test showed inferoapical ischemia. Procedure In Detail: Brought to the [facility] today as an outpatient, prepped and draped in routine s terile fashion. Given Versed for sedation. A 6-Yemeni sheath introduced in the right common femoral artery successfully. Angiography there was normal. Angio-Seal was used to close the case. Leigh catheter left and right were used to do the diagnostic catheterization. She was found to have a nor mal LAD and normal circumflex. She had a 70% to 80% mid RCA stenosis. We decided to intervene. She was given Angiomax. She will also be given aspirin and Effient. A JR4 guide catheter was used to c annulate the right main. A Bode wire was used to cross the lesion. A 2.5 x 16 Synergy stent was p laced successfully with 0% residual. 100 mcg of nitroglycerin was injected in the coronaries prior t o the final shot. There was no dissection. No thrombus. The patient tolerated the procedure well. There were no complications. Blood Loss: 5 mL. Anesthesia: Total conscious sedation was 45 minutes. Final Diagnoses: Coronary artery disease, status post successful primary stent in the mid RCA. The patient will remain in the hospital for about 6 hours. She will go home today. Her medications at home will include aspirin, Plavix, and statin as well as a low-dose beta-jim. I will see her in the office in 2 weeks. YAJAIRA/MICHELLE Voice ID: [id number] Report ID: [id number]
[2020-12-07 13:53] VITALS: TEMP 96.3
[2020-12-07 16:21] VITALS: O2SAT 98
[2020-12-07 16:40] VITALS: BP 102/58
== END 2020-12-07 17:12 | disposition home or self-care (01) ==
LOC: CCL 08:18
DX: I25.10 Atherosclerotic heart disease of native coronary artery without angina pectoris (principal); I65.23 Occlusion and stenosis of bilateral carotid arteries; J44.1 Chronic obstructive pulmonary disease with (acute) exacerbation; F17.210 Nicotine dependence, cigarettes, uncomplicated; Z20.822 Contact with and (suspected) exposure to COVID-19
CPT/HCPCS: 85025; 80048; 36415; 85610; 85347 ×2; 85730; 93454; U0003; C1893; C1760; C1725; C9600; J2250; J3010; J0583; J7040; J1644

== ENCOUNTER 2020-12-07 21:54 | Emergency (ER) | payer OTHER ==
--- OUTSIDE RECORDS SUMMARY | 2020-12-07 21:56 | XMS REPORT | Continuity of Care Document ---
:1955 Author Organization [facility] t Address [address] [place] [address] Care Team Providers Name Role Phone Unavailable Unavailable Unavailable Problems This patient has no known problems. Allergies, Adverse Reactions, Alerts This patient has no known allergies or adverse reactions. Medications This patient has no known medications. Procedures This patient has no known procedures. Encounters Start End Encounter Admission Attending Care Care Encounter Source Date/Time Date/Time Type Type Clinicians Facility Department ID 2020-11-30 2020-11-[address] [facility] [id number] [facility] 2020-11-27 2020-11-[address] [facility] [id number] [facility] 00[facility] 2020-11-23 2020-11-[address] [facility] [id number] [facility] 2020-11-17 2020-11-[address] [facility] [id number] [facility] 2020-11-15 2020-11-15 [id number] 2020-11-02 2020-11-02 [facility] [id number] 00[facility] 2020-10-02 2020-10-02 Outpatient [facility] [id number] [facility] 2020-10-02 2020-10-[address] [facility] [id number] [facility] 00:00:00 00:00:00 [facility] ent Clinics Results This patient has no known results.
--- NOTE | 2020-12-08 00:39 | EDPHYS ---
Physician Documentation [facility] Name: Renetta Mckeon Age: 65 yrs Sex: Female : 1955 Arrival Date: 12/07/2020 Time: 21:55 Bed 13 Private MD: Jose [facility] ED Physician Ian Alicea HPI: 12/07 23:28 This 65 yrs old Female presents to ER via Wheelchair with complaints of Leg pkl pain after heart surgery. 23:28 The patient presents with pain, that is acute. The complaints affect the right groin. pkl Context: Patient had cardiac cath earlier today by Dr. Puga. Complained of sudden onset of pain right groin at around [address] Patient [address] to Dr[address] Wellington ( credit administration specialist for Dr. Puga ) told to come to ER stat for evaluation. Historical: - Allergies: 22:04 No Known Allergies; ad5 - PMHx: 22:04 Cataracts; COPD; ad5 - PSHx: 22:04 Heart stents; ad5 - Immunization history:: Adult Immunizations unknown. - Social history:: Smoking status: unknown. ROS: 23:28 Eyes: Negative for injury, pain, redness, and discharge, ENT: Negative for injury, pkl pain, and discharge, Neck: Negative for injury, pain, and swelling, Cardiovascular: Negative for chest pain, palpitations, and edema, Respiratory: Negative for shortness of breath, cough, wheezing, and pleuritic chest pain, Abdomen/GI: Negative for abdominal pain, nausea, vomiting, diarrhea, and constipation, Back: Negative for injury and pain, : Negative for injury, bleeding, discharge, and swelling. 23:28 MS/extremity: Positive for pain, of the right groin. Exam: 23:28 Head/Face: Normocephalic, atraumatic. Eyes: Pupils equal round and reactive to light, pkl extra-ocular motions intact. Lids and lashes normal. Conjunctiva and sclera are non-icteric and not injected. Cornea within normal limits. Periorbital areas with no swelling, redness, or edema. ENT: Nares patent. No nasal discharge, no septal abnormalities noted. Tympanic membranes are normal and external auditory canals are clear. Oropharynx with no redness, swelling, or masses, exudates, or evidence of obstruction, uvula midline. Mucous membranes moist. Neck: Trachea midline, no thyromegaly or masses palpated, and no cervical lymphadenopathy. Supple, full range of motion without nuchal rigidity, or vertebral point tenderness. No Meningismus. Chest/axilla: Normal chest wall appearance and motion. Nontender with no deformity. No lesions are appreciated. Cardiovascular: Regular rate and rhythm with a normal S1 and S2. No gallops, murmurs, or rubs. Normal PMI, no JVD. No pulse deficits. Respiratory: Lungs have equal breath sounds bilaterally, clear to auscultation and percussion. No rales, rhonchi or wheezes noted. No increased work of breathing, no retractions or nasal flaring. Abdomen/GI: Soft, non-tender, with normal bowel sounds. No distension or tympany. No guarding or rebound. No evidence of tenderness throughout. Back: No spinal tenderness. No costovertebral tenderness. Full range of motion. 23:28 Skin: cold. 23:28 Neuro: Orientation: is normal, Mentation: is normal, Cranial nerves: grossly normal, Motor: is normal. Vital Signs: 22:01 BP 114 / 76; Pulse 65; Resp 16 S; Temp 96.7(TE); Pulse Ox 97% on R/A; Weight 63.05 kg; ad5 Height 5 ft. 2 in. (157.48 cm); Pain 5/10; 23:28 BP 113 / 66; Pulse 58; Resp 17; Pulse Ox 95% on R/A; Pain 3/10; ap3 04 00:22 BP 97 / 52; Pulse 55; Resp 17; Pulse Ox 94% on R/A; Pain 3/10; ap3 00:39 BP 104 / 69; ap3 12/07 22:01 Body Mass Index 25.42 (63.05 kg, 157.48 cm) ad5 MDM: 12/07 22:29 Patient medically screened. pkl 12/08 00:34 Data reviewed: vital signs, nurses notes, radiologic studies, CT scan, ultrasound. ED pkl course: Discussed imaging studies with patient. Advised to follow up with Dr. Puga tomorrow. Patient understood instructions. 12/07 22:44 Order name: Extremity Nonvascular Complete EDMS 12/07 22:34 Order name: EKG - Nurse/Tech; Complete Time: 22:34 ad5 12/07 22:50 Order name: Lower Extremity Artery Uni Ltd EDNH 12/07 23:21 Order name: Lower Ext Angio EDNH Administered Medications: No medications were administered Disposition: 12/08/20 00:38 Discharged to Home. Impression: Right groin pain. S/P Cardiac cath.. - Condition is Stable. - Medication Reconciliation Form, Thank You Letter, Antibiotic Education, Prescription Opioid Use form. - Follow up: Los Puga MD; When: Tomorrow; Reason: Re-evaluation by your physician. - Problem is new. - Symptoms have improved. Signatures: Dispatcher [employer] EDNH Ian Alicea MD MD pkl Rose Esparza RN RN ap3 Braden Devries ad5 Corrections: (The following items were deleted from the chart) 12/07 22:44 22:23 Extremity Venous Uni Ltd ordered. [facility] 12/08 00:43 00:38 12/08/2020 00:38 Discharged to Home. Impression: Right groin pain. S/P Cardiac ap3 cath.. Condition is Stable. Forms are Medication Reconciliation Form, Thank You Letter, Antibiotic Education, Prescription Opioid Use. Follow up: Los Puga; When: Tomorrow; Reason: Re-evaluation by your physician. Problem is new. Symptoms have improved. pkl
--- NOTE | 2020-12-08 00:39 | ER ---
Nurse's Notes [facility] Name: Renetta Mckeon Age: 65 yrs Sex: Female : 1955 Arrival Date: 12/07/2020 Time: 21:55 Bed 13 Private MD: Olaf Garcia Diagnosis: Right groin pain. S/P Cardiac cath. 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 Pt denies radiation of pain, CP, SOB or other c/o. No edema noted to site in triage, minimal bruising. Dressing to area dry and intact. Coronavirus screen: At this time, the client does not indicate any symptoms associated with coronavirus-19. Ebola Screen: No symptoms or risks identified at this time. Initial Sepsis Screen: Does the patient meet any 2 criteria? No. Patient's initial sepsis screen is negative. Does the patient have a suspected source of infection? No. Patient's initial sepsis screen is negative. Risk Assessment: Do you want to hurt yourself or someone else? Patient reports no desire to harm self or others. Onset of symptoms was December 07, 2020 at 21:00. 22:01 Method Of Arrival: Wheelchair ad5 22:01 Acuity: LEE 3 ad5 22:55 Acuity: LEE 2 iw Triage Assessment: 22:04 General: Appears in no apparent distress. Behavior is calm, cooperative, appropriate ad5 for age. Pain: Complains of pain in groin and right femoral area. Historical: - Allergies: 22:04 No Known Allergies; ad5 - PMHx: 22:04 Cataracts; COPD; ad5 - PSHx: 22:04 Heart stents; ad5 - Immunization history:: Adult Immunizations unknown. - Social history:: Smoking status: unknown. Screenin:21 Abuse screen: Denies threats or abuse. Nutritional screening: No deficits noted. ap3 Tuberculosis screening: No symptoms or risk factors identified. Fall Risk None identified. Assessment: 22:20 General: Appears in no apparent distress. comfortable, Behavior is calm, cooperative, ap3 appropriate for age. Pain: Complains of pain in right leg Pain does not radiate. Alleviated by rest, Aggravated by increased activity, repositioning, weight bearing. Neuro: Level of Consciousness is awake, alert, obeys commands, Oriented to person, place, time, situation, Gait is unsteady. Cardiovascular: Reports heart cath this morning. angioseal is in place in the right groin. Respiratory: Airway is patent Respiratory effort is even, unlabored, Respiratory pattern is regular, symmetrical. GI: No signs and/or symptoms were reported involving the gastrointestinal system. : No signs and/or symptoms were reported regarding the genitourinary system. EENT: No signs and/or symptoms were reported regarding the EENT system. Derm: angioseal in right groin. 23:29 Reassessment: Patient and/or family updated on plan of care and expected duration. Pain ap3 level reassessed. Patient is alert, oriented x 3, equal unlabored respirations, skin warm/dry/pink. patients daughter is at the bedside. 12/08 00:21 Reassessment: No changes from previously documented assessment. ap3 Vital Signs: 12/07 22:01 BP 114 / 76; Pulse 65; Resp 16 S; Temp 96.7(TE); Pulse Ox 97% on R/A; Weight 63.05 kg; ad5 Height 5 ft. 2 in. (157.48 cm); Pain 5/10; 23:28 BP 113 / 66; Pulse 58; Resp 17; Pulse Ox 95% on R/A; Pain 3/10; ap3 12/08 00:22 BP 97 / 52; Pulse 55; Resp 17; Pulse Ox 94% on R/A; Pain 3/10; ap3 00:39 BP 104 / 69; ap3 12/07 22:01 Body Mass Index 25.42 (63.05 kg, 157.48 cm) ad5 ED Course: 12/07 21:55 Patient arrived in ED. am4 21:56 Olaf Garcia DO is Private Physician. am4 22:03 Triage completed. ad5 22:04 Arm band placed on right wrist. ad5 22:20 Rose Esparza, VALDEMAR is Primary Nurse. ap3 22:21 Patient has correct armband on for positive identification. Placed in gown. Bed in low ap3 position. Side rails up X2. Adult w/ patient. Pulse ox on. NIBP on. Door closed. Noise minimized. Warm blanket given. 22:26 Primary Nurse role handed off by Rose Esparza, RN ap3 22:26 Rose Esparza, RN is Primary Nurse. ap3 22:29 Ian Alicea MD is Attending Physician. pkl 22:44 Extremity Nonvascular Complete In Process Unspecified. EDMS 23:14 Lower Extremity Artery Uni Ltd In Process Unspecified. EDMS 23:26 Inserted saline lock: 20 gauge in right antecubital area, using aseptic technique. ap3 0604 00:09 Lower Ext Angio In Process Unspecified. EDMS 00:37 Los Puga MD is Referral Physician. pkl 00:38 No provider procedures requiring assistance completed. IV discontinued, intact, ap3 bleeding controlled, No redness/swelling at site. Pressure dressing applied. Administered Medications: No medications were administered Outcome: 00:38 Discharge ordered by . pkl 00:43 Discharged to home ambulatory, with family. ap3 00:43 Condition: good 00:43 Discharge instructions given to patient, family, Instructed on discharge instructions, follow up and referral plans. Demonstrated understanding of instructions, follow-up care. 00:43 Patient left the ED. ap3 Signatures: Dispatcher [employer] EDMS Ian Alicea MD MD pkl Nina Boland RN RN iw Rose Esparza RN RN ap3 Kemi Kelly amBraden Corley ad5
[2020-12-08 00:51] VITALS: TEMP 96.7
[2020-12-08 00:54] VITALS: O2SAT 94
[2020-12-08 00:55] VITALS: BP 104/69
[2020-12-08] MEDS ORDERED: ACETAMINOPHEN 500 MG TAB ONE (00:55)
--- NOTE | 2020-12-08 08:41 | RAD REPORT ---
EXAM DESCRIPTION: US - Extremity Nonvascular Complete - 12/07/2020 10:45 pm CLINICAL HISTORY: SWELLING, HEART CATH TODAY COMPARISON: No comparisons FINDINGS: History indicates pain and swelling in the right groin. Patient had a recent heart cathete rization via right femoral access. No hematoma or mass seen in the soft tissues overlying the right femoral vasculature. No pseudoaneury sm identified. Blood flow was demonstrated in the right common femoral artery. IMPRESSION: No hematoma, pseudoaneurysm or other suspicious right groin finding.
--- NOTE | 2020-12-08 08:42 | RAD REPORT ---
EXAM DESCRIPTION: US - Lower Extremity Artery Uni Ltd - 12/07/2020 11:14 pm CLINICAL HISTORY: COLD LEG Recent heart catheterization via right groin approach Preliminary findings provided at the time of the study. COMPARISON: No comparisons TECHNIQUE: Doppler evaluation of the right lower extremity arterial tree performed. Waveforms and ve locity values were obtained along with visual inspection. FINDINGS: Biphasic waveform pattern was seen in the right common femoral artery. There is no overlyi ng hematoma or associated pseudoaneurysm identifiable. Biphasic waveform pattern continues through th e right superficial femoral, popliteal, dorsalis pedis and posterior tibial arteries. No occlusion or focal flow restricting lesion identifiable. No suspicious velocity values. IMPRESSION: No occlusion or focal flow restricting lesion in the right lower extremity arterial tree . Biphasic waveform pattern was seen along the entire length of the right lower extremity arterial tree . No overlying hematoma or pseudoaneurysm in the right groin.
--- NOTE | 2020-12-08 14:48 | RAD REPORT ---
EXAM DESCRIPTION: CT - Lower Ext Angio - 12/08/2020 6:36 am CLINICAL HISTORY: Post heart cath placement. COMPARISON: None. TECHNIQUE: CTA of the right lower extremity was performed following intravenous administration of io dinated contrast. Axial, coronal, and sagittal reconstructions were created and sent to PACS. 3D reconstructions were created on an independent workstation and sent to PACS for evaluation. This exam was performed according to our departmental dose-optimization program, which includes autom ated exposure control, adjustment of the mA and/or kV according to patient size and/or use of iterati ve reconstruction technique. FINDINGS: Vascular: Mild aortoiliac atherosclerosis. Minimal narrowing in the mid right external ricky ac artery (less than 50%). Moderate nonenhancing soft tissue thickening about the common femoral and proximal superficial femoral artery. Thin, faint contrast extending anterior to the distal common fem oral artery for a distance of approximately 1.9 cm. No rounded contrast collection to suggest pseudoa neurysm formation. The superficial and deep femoral arteries are patent comment as well as the poplit eal artery. The proximal aspect of the three calf arteries are patent. Bones: No concerning osseous abnormality. IMPRESSION: 1. Patent right lower extremity arterial system. 2. Changes of recent instrumentation about the common femoral and proximal superficial femoral yessi ry. Thin, faint line of contrast extending anterior to the distal common femoral artery could represe nt extravasated contrast versus hyperdense blood products, difficult to distinguish in the absence of noncontrast images. 3. No evidence of pseudoaneurysm formation. THIS REPORT CONTAINS FINDINGS THAT MAY BE CRITICAL TO PATIENT CARE: The findings were verbally discus sed via telephone conference with Dr. Ian Alicea on 12/08/2020 12:13 AM CDT. The results were acknowledged and understood. Electronically signed by: Balbina Randall MD 12/08/2020 12:17 AM CDT Due to temporary technical issues with the PACS/Fluency reporting system, reports are being signed by the in house radiologists without review as a courtesy to insure prompt reporting. The interpreting radiologist is fully responsible for the content of the report.
== END 2020-12-08 00:43 | disposition home or self-care (01) ==
LOC: ER 21:54
DX: R10.31 Right lower quadrant pain (principal); J44.9 Chronic obstructive pulmonary disease, unspecified; Z95.5 Presence of coronary angioplasty implant and graft
CPT/HCPCS: 93005; 82565; 73706; 93926; 76881; 99283; Q9967

== ENCOUNTER → 2021-05-04 | Day surgery (SDC) | payer OTHER ==
--- NOTE | 2021-05-09 20:53 | RAD REPORT ---
EXAM DESCRIPTION: US - Breast Core BX w/US Guidance - 05/04/2021 11:41 am CLINICAL HISTORY: ICD R 92.8 COMPARISON: November 22, 2020 ultrasound TECHNIQUE: The risks, benefits alternatives to the procedure were explained to the patient and infor med consent obtained. Skin and subcutaneous tissues anesthetized with lidocaine. Under sonographic guidance, 4 18 gauge vacuum assisted core biopsies of the mass within the left natalya st obtained. 2 centimeter specimens taken. After the first core sample, the lesion was very difficult to confidently relocate as a result of the biopsy related changes and/or decompression of the lesion . Tissue given to pathology. Subsequently a localizing clip was placed into the mass. Patient experienced no immediate complication IMPRESSION: Several core biopsies obtained of the left breast lesion at 3 o'clock. Subsequent pathology revealed no evidence of malignancy. This result is discordant with the MRI resul ts. One option for further management includes 6 month follow-up MRI and possible second look ultraso und. If the lesion cannot be adequately identified with ultrasound at that time, the patient may need an MRI guided biopsy to ensure proper sampling.
== END ==
LOC: DS 15:35
PROVIDERS: ATTEND Family Medicine
DX: N63.20 Unspecified lump in the left breast, unspecified quadrant (principal); R92.8 Other abnormal and inconclusive findings on diagnostic imaging of breast
CPT/HCPCS: 19083; 88305

== ENCOUNTER 2021-08-21 12:13 | Emergency (ER) | payer OTHER ==
--- OUTSIDE RECORDS SUMMARY | 2021-08-21 12:16 | XMS REPORT | Continuity of Care Document ---
:1955 Author Organization [facility] t Address [address] [place] [address] Care Team Providers Name Role Phone Jose Olaf Park Attending Clinician Unavailable Problems This patient has no known problems. Allergies, Adverse Reactions, Alerts This patient has no known allergies or adverse reactions. Medications This patient has no known medications. Procedures This patient has no known procedures. Encounters Start End Encounter Admission Attending Care Care Encounter Source Date/Time Date/Time Type Type Clinicians Facility Department ID 2021-08-01 Outpatient [facility] 14:25:51 Olaf [id number] [facility] 2021-08-01 Outpatient [facility] 14[facility]23:55 Olaf [id number] [facility] 2021-08-01 Outpatient [facility] 14[facility]20:29 Olaf [id number] [facility] 2021-08-01 Outpatient [facility] 14[facility]19:55 Olaf [id number] [facility] 2021-08-01 Outpatient [facility] 14[facility]18:43 Olaf [id number] [facility] 2021-08-01 Outpatient [facility] 14[facility]07:17 Olaf [id number] [facility] 2021-08-01 Outpatient Garcia, [facility] 14[facility]06:29 Olaf [id number] [facility] 2021-08-01 Outpatient Garcia, [facility] 14:01:37 Olaf [id number] [facility] 2021-08-01 Outpatient Garcia, [facility] 13[facility]25:31 Olaf [id number] [facility] 2021-08-01 Outpatient Garcia, [facility] 12[facility]30:59 Olaf [id number] [facility] 2021-08-01 Outpatient Garcia, [facility] 12[facility]14:04 Olaf [id number] [facility] 2021-06-21 2021-06-21 ambulatory [facility] [id number] [facility] 2021-06-19 2021-06-19 ambulatory [facility] [id number] [facility] 2021-06-18 2021-06-18 ambulatory [facility] [id number] [facility] 2021-06-12 2021-06-12 ambulatory [facility] [id number] [facility] 2021-06-12 2021-06-12 ambulatory [facility] [id number] [facility] 2021-06-12 2021-06-12 ambulatory [facility] [id number] [facility] 2021-06-12 2021-06-12 ambulatory [facility] [id number] [facility] 2021-06-11 2021-06-11 ambulatory [facility] [id number] [facility] 2021-06-07 2021-06-07 ambulatory [facility] [id number] [facility] 2021-06-05 2021-06-05 ambulatory [facility] [id number] [facility] 2021-06-04 2021-06-04 ambulatory [facility] [id number] [facility] 2021-05-16 2021-05-16 ambulatory [facility] [id number] [facility] 2021-05-04 2021-05-04 Outpatient [facility] [id number] [facility] 2021-04-25 2021-04-25 Outpatient [facility] [id number] [facility] 2021-04-24 2021-04-24 Outpatient [facility] [id number] [facility] 2021-04-13 2021-04-13 Outpatient [facility] [id number] [facility] 2021-04-13 2021-04-13 Outpatient [facility] [id number] [facility] 2021-03-30 2021-03-30 Outpatient [facility] [id number] [facility] 2021-02-19 2021-02-19 Outpatient [facility] [id number] [facility] 2021-01-23 2021-01-23 Outpatient [facility] [id number] [facility] 2021-01-15 2021-01-15 Outpatient [facility] [id number] [facility] 2021-01-12 2021-01-12 Outpatient [facility] [id number] [facility] 2020-11-30 2020-11-30 Outpatient [facility] [id number] [facility] 2020-11-27 2020-11-27 Outpatient [facility] [id number] [facility] 2020-11-23 2020-11-23 Outpatient [facility] [id number] [facility] 2020-11-17 2020-11-17 Outpatient [facility] [id number] [facility] 2020-11-15 2020-11-15 Outpatient [facility] [id number] [facility] 2020-11-02 2020-11-02 Out[facility] [id number] [facility] 2020-10-02 2020-10-02 Outpatient [facility] [id number] [facility] 2020-10-02 2020-10-02 Outpatient [facility] [id number] [facility] 00:00:00 00:00:00 [facility] ent Clinics Results This patient has no known results.
[2021-08-21 12:56] LABS: Hematocrit 45.2 % (36.0-45.0); Lymphocytes % 22.8 % (15.3-44.8); RBC Red Blood Cell Count 4.85 M/uL (3.86-4.86)
[2021-08-21 13:02] LABS: Protime INR 0.94
[2021-08-21 13:16] LABS: Troponin High Sensitivity 4.6 pg/mL (<58.9)
--- NOTE | 2021-08-21 13:47 | RAD REPORT ---
EXAM DESCRIPTION: US - CP - 08/21/2021 1:18 pm CLINICAL HISTORY: neck pain COMPARISON: Soft Tissue Neck W/Contr dated 11/15/2020 TECHNIQUE: Real-time sonographic evaluation of bilateral carotid and vertebral systems was performed . Garay scale and Doppler interrogation were performed with waveform tracing bilaterally. FINDINGS: Normal high resistance waveforms are noted in both external carotid arteries. The common c arotid arteries and internal carotid arteries show normal low resistance waveforms. No significant plaquing changes are identifiable in the right carotid vasculature. Focal stenosis at the origin of the left external carotid arteries again identifiable. Atherosclerotic changes are pres ent at this site. External carotid stenoses are generally of no clinical significance. Mild plaquing changes are present at the left proximal ICA without significant luminal narrowing. Peak systolic and end diastolic velocity values and the ICA/CCA ratios are in the non-hemodynamically significant rang e. Antegrade flow seen in both vertebral arteries. Velocity values and ratios were recorded and are retained in the patient's imaging records. IMPRESSION: Mild plaquing changes in the left internal carotid artery without hemodynamically signif icant stenosis. Left external carotid artery origin significant stenosis present. This has been previously seen and e xternal carotid artery stenoses are generally not clinically significant. No significant right carotid disease. No evidence of a hemodynamically significant stenosis.
--- NOTE | 2021-08-21 14:10 | ER ---
Nurse's Notes [facility] Name: Renetta Mckeon Age: 66 yrs Sex: Female : 1955 Arrival Date: 08/21/2021 Time: 12:14 Bed 17 Private MD: Diagnosis: Neck pain Presentation: 08/21 12:28 Chief complaint: Patient states: neck, right shoulder back pain and nausea. pt report arauz have heart stent about 8 months ago. Coronavirus screen: Vaccine status: Patient reports receiving the 2nd dose of the covid vaccine. Ebola Screen: Patient denies travel to an Ebola-affected area in the 21 days before illness onset. Initial Sepsis Screen: Does the patient meet any 2 criteria? No. Patient's initial sepsis screen is negative. Does the patient have a suspected source of infection? No. Patient's initial sepsis screen is negative. Risk Assessment: Do you want to hurt yourself or someone else? Patient reports no desire to harm self or others. Onset of symptoms was August 20, 2021. 12:28 Method Of Arrival: Ambulatory arauz 12:28 Acuity: LEE 3 arauz Triage Assessment: 12:31 General: Appears in no apparent distress. Behavior is calm, cooperative. Pain: arauz Complains of pain in scalp and right scapular area. Historical: - Allergies: 12:31 No Known Allergies; arauz - PMHx: 12:31 Cataracts; COPD; arauz - PSHx: 12:31 Stented artery; arauz - Immunization history:: Adult Immunizations up to date. - Social history:: Smoking status: Patient reports the use of cigarette tobacco products, smokes one pack cigarettes per day. - Family history:: not pertinent. - Hospitalizations: : No recent hospitalization is reported. Screenin:32 Abuse screen: Denies threats or abuse. Denies injuries from another. Nutritional arauz screening: No deficits noted. Tuberculosis screening: No symptoms or risk factors identified. Fall Risk None identified. Assessment: 12:32 Pain: Complains of pain in right trapezius and right scapular area. Neuro: Level of arauz Consciousness is awake, alert, obeys commands, Oriented to person, place, time, situation. Musculoskeletal: Tenderness present in right trapezius and right scapular area. 12:49 GI: Reports nausea. arauz Vital Signs: 12:28 BP 132 / 65; Pulse 71; Resp 18; Temp 98.0; Pulse Ox 95% ; Weight 62.14 kg; Height 5 ft. arauz 1 in. (154.94 cm); 13:17 BP 117 / 63; Pulse 65; Resp 18; Pulse Ox 97% ; arauz 12:28 Body Mass Index 25.89 (62.14 kg, 154.94 cm) arauz ED Course: 12:14 Patient arrived in ED. as 12:23 Paulo Walsh MD is Attending Physician. rn 12:31 Triage completed. arauz 12:32 Patient has correct armband on for positive identification. Bed in low position. arauz 12:32 No provider procedures requiring assistance completed. arauz 12:33 Arm band placed on. arauz 12:49 Inserted saline lock: 20 gauge in right antecubital area, using aseptic technique. arauz 12:56 EKG done, by ED staff, reviewed by Paulo Walsh MD. em1 13:18 Carotid Artery Bilateral US In Process Unspecified. EDMS 14:28 IV discontinued, intact, Pressure dressing applied. arauz Administered Medications: No medications were administered Outcome: 14:10 Discharge ordered by . rn 14:28 Discharged to home with family. arauz 14:28 Condition: good 14:28 Discharge instructions given to Prescriptions given X 2. 14:28 Patient left the ED. arauz Signatures: Dispatcher [employer] EDMS Josee Kelly Roman, MD MD rn Martinez, Eric em1 Au-StagerCarolynn RN RN ha
--- NOTE | 2021-08-21 14:10 | EDPHYS ---
Physician Documentation [facility] Name: Renetta Mckeon Age: 66 yrs Sex: Female : 1955 Arrival Date: 08/21/2021 Time: 12:14 Bed 17 Private MD: ED Physician Paulo Walsh HPI: 08/21 12:43 This 66 yrs old Female presents to ER via Ambulatory with complaints of Neck and Upper rn Back Pain. 12:43 The patient or guardian complains of pain, that is acute. The symptoms are located on rn the right trapezius and right scapular area right lateral neck and left lateral neck. Onset: The symptoms/episode began/occurred yesterday. Associated signs and symptoms: Pertinent negatives: fever, headache, bladder incontinence, bowel incontinence, numbness, tingling, weakness. The pain radiates to the right trapezius and right scapular area. Modifying factors: The symptoms are alleviated by remaining still, the symptoms are aggravated by movement, pressure. Severity of symptoms: At their worst the symptoms were moderate, in the emergency department the symptoms have improved. The patient has not experienced similar symptoms in the past. The patient has not recently seen a physician. Patient reports neck pain that began yesterday, woke up with pain. Denies trauma. Denies chest pain or shortness of breath. Worse with movement and palpation and improves when holding still. Called PCP to get muscle relaxer prescription and told to come to the emergency room for evaluation. She states she had a cardiac stent placed 8 months ago and at that time was told had approximately 70% carotid blockages but did not need intervention at that point.. Historical: - Allergies: 12:31 No Known Allergies; arauz - PMHx: 12:31 Cataracts; COPD; arauz - PSHx: 12:31 Stented artery; arauz - Immunization history:: Adult Immunizations up to date. - Social history:: Smoking status: Patient reports the use of cigarette tobacco products, smokes one pack cigarettes per day. - Family history:: not pertinent. - Hospitalizations: : No recent hospitalization is reported. ROS: 12:43 Constitutional: Negative for fever, chills, and weight loss, Eyes: Negative for injury, rn pain, redness, and discharge, Neck: Positive for neck pain Cardiovascular: Negative for chest pain, palpitations, and edema, Respiratory: Negative for shortness of breath, cough, wheezing, and pleuritic chest pain, Abdomen/GI: Negative for abdominal pain, nausea, vomiting, diarrhea, and constipation, Back: Positive for right scapular pain MS/Extremity: Negative for injury and deformity, Skin: Negative for injury, rash, and discoloration, Neuro: Negative for headache, weakness, numbness, tingling, and seizure. Exam: 12:43 Constitutional: This is a well developed, well nourished patient who is awake, alert, rn and in no acute distress. Patient laughing and joking entire time. Head/Face: Normocephalic, atraumatic. Eyes: Periorbital areas with no swelling, redness, or edema. Neck: Trachea midline, no masses palpated, and no cervical lymphadenopathy. No Meningismus. Slow to turn to either side Cardiovascular: Regular rate and rhythm. No pulse deficits. Respiratory: No increased work of breathing, no retractions or nasal flaring. Abdomen/GI: Soft, non-tender Skin: Warm, dry MS/ Extremity: Pulses equal, no cyanosis Neuro: Awake and alert, GCS 15, oriented to person, place, time, and situation. Cranial nerves II-XII grossly intact. Motor strength 5/5 in all extremities. Sensory grossly intact. Vital Signs: 12:28 BP 132 / 65; Pulse 71; Resp 18; Temp 98.0; Pulse Ox 95% ; Weight 62.14 kg; Height 5 ft. arauz 1 in. (154.94 cm); 13:17 BP 117 / 63; Pulse 65; Resp 18; Pulse Ox 97% ; arauz 12:28 Body Mass Index 25.89 (62.14 kg, 154.94 cm) arauz MDM: 12:23 Patient medically screened. rn 14:05 Differential diagnosis: Cervical Discogenic Pain Cervical Facet Syndrome Cervical rn Raiculopathy Cervical Spondylosis cervical strain, torticollis, cardiac radiation. Data reviewed: vital signs, nurses notes, lab test result(s), EKG, radiologic studies, doppler, and as a result, I will discharge patient. Special discussion: I discussed with the patient/guardian in detail that at this point there is no indication for admission to the hospital. It is understood, however, that if the symptoms persist or worsen the patient needs to return immediately for re-evaluation. ED course: NO acute findings in doppler of carotid arteries, neg EKG, normal trop. will dc home with muscle relaxer. . 08/21 12:42 Order name: Basic Metabolic Panel; Complete Time: 13: rn 08/21 12:42 Order name: CBC with Diff; Complete Time: 13: rn 08/21 12:42 Order name: PT-INR; Complete Time: 13:19 rn 08/21 12:42 Order name: Troponin HS; Complete Time: 13: rn 08/21 12:42 Order name: Carotid Artery Bilateral US; Complete Time: 13:50 rn 08/21 12:42 Order name: EKG; Complete Time: 12:43 rn 08/21 12:42 Order name: Cardiac monitoring; Complete Time: 12:49 rn 08/21 12:42 Order name: EKG - Nurse/Tech; Complete Time: 12:49 rn 08/21 12:42 Order name: IV Saline Lock; Complete Time: 12:49 rn 08/21 12:42 Order name: Labs collected and sent; Complete Time: 12:49 rn 08/21 12:42 Order name: O2 Per Protocol; Complete Time: 12:49 rn 08/21 12:42 Order name: O2 Sat Monitoring; Complete Time: 12:49 rn Administered Medications: No medications were administered Disposition Summary: 08/21/21 14:10 Discharge Ordered Location: Home rn Problem: new rn Symptoms: have improved rn Condition: Stable rn Diagnosis - Neck pain rn Followup: rn - With: Private Physician - When: As needed - Reason: Recheck today's complaints, Re-evaluation by your physician Discharge Instructions: - Discharge Summary Sheet rn - Acute Pain, Adult rn Forms: - Medication Reconciliation Form rn - Thank You Letter rn - Antibiotic estate attorney - Prescription Opioid Use rn Prescriptions: - Cyclobenzaprine 10 mg Oral Tablet - take 1 tablet by ORAL route every 8 hours As needed; 15 tablet; Refills: 0, rn Product Selection Permitted - Medrol (Miguel) 4 mg Oral Tablets, Dose Pack - take 1 tablet by ORAL route as directed - follow package instructions; 1 rn packet; Refills: 0, Product Selection Permitted Signatures: Dispatcher [employer] Paulo Still MD MD rn Au-StagerCarolynn RN RN arauz
[2021-08-21 14:35] VITALS: TEMP 98
[2021-08-21 14:36] VITALS: BP 117/63; O2SAT 97
--- NOTE | 2021-08-22 11:16 | EKG ---
Test Date: 2021-08-21 Test Time: 12:47:45 Traffic Signal Supervisor Maintenance: JS MEASUREMENT RESULTS: Intervals: Rate: 66 WA: 148 QRSD: 74 QT: 394 QTc: 413 [place]: P: 60 WA: 148 QRS: 65 T: 41 INTERPRETIVE STATEMENTS: Normal sinus rhythm Low voltage QRS Cannot rule out Anterior infarct, age undetermined Abnormal ECG Compared to ECG 12/07/2020 22:08:39 Low QRS voltage now present Myocardial infarct finding now present Electronically Signed On 08-22-21 11:13:51 [employer] by [place]
== END 2021-08-21 14:28 | disposition home or self-care (01) ==
LOC: ER 12:13
DX: M54.2 Cervicalgia (principal)
CPT/HCPCS: 36415; 80048; 84484; 85025; 85610; 93005; 93880; 99284

== ENCOUNTER 2021-12-25 13:05 | Emergency (ER) | payer OTHER ==
--- OUTSIDE RECORDS SUMMARY | 2021-12-25 13:08 | XMS REPORT | Continuity of Care Document ---
:1955 Author Organization [facility] t Address [address] [place] [address] Care Team Providers Name Role Phone Jose [...] Type Clinicians Facility Department ID 2021-08-01 Outpatient Garcia, [facility] Common 14:25:51 Olaf [id number] [facility] 2021-08-01 Outpatient Garcia, [facility] Common 14:23:55 Olaf [id number] [facility] 2021-08-01 Outpatient Garcia, [facility] Common 14:20:29 Olaf [id number] [facility] 2021-08-01 Outpatient Garcia, [facility] Common 14:19:55 Olaf [id number] [facility] 2021-08-01 Outpatient Garcia, [facility] Common 14:18:43 Olaf [id number] [facility] 2021-08-01 Outpatient Garcia, [facility] Common 14:07:17 Olaf [id number] [facility] 2021-08-01 Outpatient Garcia, [facility] [id number] Common 14:06:29 Olaf [id number] [facility] 2021-08-01 Outpatient Garcia, [facility] [id number] Common 14:01:37 Olaf [id number] [facility] 2021-08-01 Outpatient Garcia, [facility] [id number] Common 13:25:31 Olaf [id number] [facility] 2021-08-01 Outpatient Garcia, [facility] [id number] Common 12:30:59 Olaf [id number] [facility] 2021-08-01 Outpatient Garcia, [facility] [id number] Common 12:14:04 Olaf [id number] [facility] 2021-12-13 2021-12-13 ambulatory [facility] [id number] Common 00:00:00 00:00:00 [facility] 2021-12-06 2021-12-06 ambulatory [facility] [id number] Common 00:00:00 00:00:00 [facility] 2021-11-14 2021-11-14 ambulatory [facility] [id number] Common 00:00:00 00:00:00 [facility] 2021-09-18 2021-09-18 ambulatory [facility] [id number] Common 00:00:00 00:00:00 [facility] 2021-08-21 2021-08-21 ambulatory [facility] [id number] Common 00:00:00 00:00:00 [facility] 2021-08-21 2021-08-21 ambulatory [facility] [id number] Common 00:00:00 00:00:00 [facility] 2021-06-21 2021-06-21 ambulatory [facility] [id number] Common 00:00:00 00:00:00 [facility] 2021-06-19 2021-06-19 ambulatory [facility] [id number] Common 00:00:00 00:00:00 [facility] 2021-06-18 2021-06-18 ambulatory [facility] [id number] Common 00:00:00 00:00:00 [facility] 2021-06-12 2021-06-12 ambulatory [facility] [id number] Common 00:00:00 00:00:00 [facility] 2021-06-12 2021-06-12 ambulatory [facility] [id number] Common 00:00:00 00:00:00 [facility] 2021-06-12 2021-06-12 ambulatory [facility] [id number] Common 00:00:00 00:00:00 [facility] 2021-06-12 2021-06-12 ambulatory [facility] [id number] Common 00:00:00 00:00:00 [facility] 2021-06-11 2021-06-11 ambulatory [facility] [id number] Common 00:00:00 00:00:00 [facility] 2021-06-07 2021-06-07 ambulatory [facility] [id number] Common 00:00:00 00:00:00 [facility] 2021-06-05 2021-06-05 ambulatory [facility] [id number] Common 00:00:00 00:00:00 [facility] 2021-06-04 2021-06-04 ambulatory [facility] [id number] Common 00:00:00 00:00:00 [facility] 2021-05-16 2021-05-16 ambulatory [facility] [id number] Common 00:00:00 00:00:00 [facility] 2021-05-04 2021-05-04 Outpatient [facility] [id number] Common 00:00:00 00:00:00 [facility] 2021-04-25 2021-04-25 Outpatient [facility] [id number] Common 00:00:00 00:00:00 [facility] 2021-04-24 2021-04-24 Outpatient [facility] [id number] Common 00:00:00 00:00:00 [facility] 2021-04-13 2021-04-13 Outpatient [facility] [id number] Common 00:00:00 00:00:00 [facility] 2021-04-13 2021-04-13 Outpatient [facility] [id number] Common 00:00:00 00:00:00 [facility] 2021-03-30 2021-03-30 Outpatient [facility] [id number] Common 00:00:00 00:00:00 [facility] 2021-02-19 2021-02-19 Outpatient [facility] [id number] Common 00:00:00 00:00:00 [facility] 2021-01-23 2021-01-23 Outpatient [facility] [id number] Common 00:00:00 00:00:00 [facility] 2021-01-15 2021-01-15 Outpatient [facility] [id number] Common 00:00:00 00:00:00 [facility] 2021-01-12 2021-01-12 Outpatient [facility] [id number] Common 00:00:00 00:00:00 [facility] 2020-11-30 2020-11-30 Outpatient [facility] [id number] Common 00:00:00 00:00:00 [facility] 2020-11-27 2020-11-27 Outpatient [facility] [id number] Common 00:00:00 00:00:00 [facility] 2020-11-23 2020-11-23 Outpatient [facility] [id number] Common 00:00:00 00:00:00 [facility] 2020-11-17 2020-11-17 Outpatient [facility] [id number] Common 00:00:00 00:00:00 [facility] 2020-11-15 2020-11-15 Outpatient [facility] ST[facility] [id number] Common 00:00:00 00:00:00 [facility] 2020-11-02 2020-11-02 Outpatient [facility] [id number] Common 00:00:00 00:00:00 [facility] 2020-10-02 2020-10-02 Outpatient [facility] [id number] Common 00:00:00 00:00:00 [facility] 2020-10-02 2020-10-02 Outpatient [facility] [id number] Common 00:00:00 00:00:00 [facility] Results This patient has no known results.
--- NOTE | 2021-12-25 13:41 | EDPHYS ---
Physician Documentation [facility] Name: Renetta Mckeon Age: 66 yrs Sex: Female : 1955 Arrival Date: 12/25/2021 Time: 13:07 Bed 19 Private MD: Julian Strauss HPI: 12/25 13:25 This 66 yrs old Female presents to ER via Ambulatory with complaints of Breast Problem. cp 13:25 The patient presents with cellulitis of the left breast. cp 13:25 Description: erythematous, swollen, pain. Onset: The symptoms/episode began/occurred cp yesterday, and became worse today. Associated signs and symptoms: Pertinent negatives: discharge, drainage, fever. Historical: - Allergies: 13:12 No Known Allergies; vg1 - Home Meds: 13:12 clopidogrel oral [Active]; Folic Acid Oral [Active]; atorvastatin oral [Active]; vg1 Albuterol Inhl [Active]; Aspirin Oral [Active]; - PSHx: 13:12 Stented artery; vg1 - Immunization history:: Client reports receiving the 2nd dose of the Covid vaccine. - Social history:: Smoking status: Patient reports the use of cigarette tobacco products, smokes one pack cigarettes per day. ROS: 13:30 Skin: Positive for erythema, of the left breast and left nipple, pain. cp 13:30 Eyes: Negative for injury, pain, redness, and discharge. cp 13:30 Constitutional: Negative for body aches, chills, fever. 13:30 Cardiovascular: Negative for chest pain, edema, palpitations. 13:30 Respiratory: Negative for cough, shortness of breath, wheezing. 13:30 Abdomen/GI: Negative for abdominal pain, nausea, vomiting, diarrhea, constipation. 13:30 All other systems are negative. Exam: 13:33 Constitutional: The patient appears in no acute distress, alert, awake, comfortable, cp non-toxic, well developed, well nourished. 13:33 Head/Face: Normocephalic, atraumatic. cp 13:33 Eyes: Periorbital structures: appear normal, Conjunctiva: normal, no exudate, no injection, Lids and lashes: appear normal, bilaterally. 13:33 ENT: External ear(s): are unremarkable, Nose: is normal, Mouth: Lips: moist, Oral mucosa: moist, Posterior pharynx: Airway: no evidence of obstruction, patent. 13:33 Chest/axilla: Axilla: lymphadenopathy, that is small, in the left axilla, with tenderness, Breasts: abscess, not appreciated, cellulitis, that is mild of the left breast, nipple discharge, is not appreciated, tenderness, that is mild of the left breast. 13:33 Cardiovascular: Rate: normal. 13:33 Respiratory: the patient does not display signs of respiratory distress, Respirations: normal, no use of accessory muscles, no retractions, labored breathing, is not present, Breath sounds: are clear throughout. 13:33 Abdomen/GI: Exam negative for discomfort, distension, guarding, Inspection: abdomen appears normal. Vital Signs: 13:10 BP 119 / 50; Pulse 94; Resp 16; Temp 97.5; Pulse Ox 97% on R/A; Weight 61.69 kg; Height vg1 5 ft. 1 in. (154.94 cm); Pain 8/10; 13:10 Body Mass Index 25.70 (61.69 kg, 154.94 cm) vg1 MDM: 13:17 Patient medically screened. cp 13:40 Data reviewed: vital signs, nurses notes, and as a result, I will discharge patient. cp 13:40 Differential diagnosis: abscess, cellulitis. Counseling: I had a detailed discussion cp with the patient and/or guardian regarding: the historical points, exam findings, and any diagnostic results supporting the discharge/admit diagnosis, the need for outpatient follow up, a family practitioner, to return to the emergency department if symptoms worsen or persist or if there are any questions or concerns that arise at home. Administered Medications: No medications were administered Disposition Summary: 12/25/21 13:41 Discharge Ordered Location: Home cp Problem: new cp Symptoms: are unchanged cp Condition: Stable cp Diagnosis - Cellulitis of other sites - left breast cp Followup: cp - With: Private Physician - When: 1 - 2 days - Reason: Recheck today's complaints Discharge Instructions: - Discharge Summary Sheet cp - Cellulitis, Adult cp Forms: - Medication Reconciliation Form cp - Thank You Letter cp - Antibiotic Education cp - Prescription Opioid Use cp Prescriptions: - Dicloxacillin 500 mg Oral Capsule - take 1 capsule by ORAL route every 6 hours for 10 days; 40 capsule; Refills: 0, cp Product Selection Permitted Signatures: Julian Smith PA PA cp Pushpa Chavez, RN RN vg1
--- NOTE | 2021-12-25 13:41 | ER ---
Nurse's Notes [facility] Name: Renetta Mckeon Age: 66 yrs Sex: Female : 1955 Arrival Date: 12/25/2021 Time: 13:07 Bed 19 Private MD: Diagnosis: Cellulitis of other sites-left breast Presentation: 12/25 13:10 Chief complaint: Patient states: Was sent to ED by Dr Garcia; pt c/o Left breast pain vg1 that is sharp and has redness. Coronavirus screen: Vaccine status: Patient reports receiving the 2nd dose of the covid vaccine. Client denies travel out of the [place] in the last 14 days. Ebola Screen: Patient denies exposure to infectious person. Patient denies travel to an Ebola-affected area in the 21 days before illness onset. Initial Sepsis Screen: Does the patient meet any 2 criteria? No. Patient's initial sepsis screen is negative. Does the patient have a suspected source of infection? No. Patient's initial sepsis screen is negative. Risk Assessment: Do you want to hurt yourself or someone else? Patient reports no desire to harm self or others. Onset of symptoms was October 2021. 13:10 Method Of Arrival: Ambulatory vg1 13:10 Acuity: LEE 3 vg1 Triage Assessment: 13:12 General: Appears in no apparent distress. uncomfortable, Behavior is calm, cooperative. vg1 Pain: Complains of pain in left nipple and left breast Pain currently is 0 out of 10 on a pain scale. at worst was 8 out of 10 on a pain scale. Historical: - Allergies: 13:12 No Known Allergies; vg1 - Home Meds: 13:12 clopidogrel oral [Active]; Folic Acid Oral [Active]; atorvastatin oral [Active]; vg1 Albuterol Inhl [Active]; Aspirin Oral [Active]; - PSHx: 13:12 Stented artery; vg1 - Immunization history:: Client reports receiving the 2nd dose of the Covid vaccine. - Social history:: Smoking status: Patient reports the use of cigarette tobacco products, smokes one pack cigarettes per day. Screenin:40 Abuse screen: Denies threats or abuse. Denies injuries from another. Nutritional arauz screening: No deficits noted. Tuberculosis screening: No symptoms or risk factors identified. Fall Risk None identified. Assessment: 13:40 General: Appears in no apparent distress. Behavior is calm, cooperative. Pain: Denies arauz pain. Derm: Reports red and redness on left nipple. Vital Signs: 13:10 BP 119 / 50; Pulse 94; Resp 16; Temp 97.5; Pulse Ox 97% on R/A; Weight 61.69 kg; Height vg1 5 ft. 1 in. (154.94 cm); Pain 8/10; 13:10 Body Mass Index 25.70 (61.69 kg, 154.94 cm) vg1 ED Course: 13:07 Patient arrived in ED. rg4 13:12 Triage completed. vg1 13:12 Arm band placed on. vg1 13:17 Julian Smith PA is PHCP. cp 13:17 Julian Gorman MD is Attending Physician. cp 13:40 Carolynn Santana, RN is Primary Nurse. arauz 13:40 Patient has correct armband on for positive identification. Bed in low position. arauz 13:40 No provider procedures requiring assistance completed. arauz 13:54 Patient did not have IV access during this emergency room visit. arauz Administered Medications: No medications were administered Medication: 13:40 VIS not applicable for this client. arauz Outcome: 13:41 Discharge ordered by MD. cp 13:54 Discharged to home ambulatory. arauz 13:54 Condition: good 13:54 Discharge instructions given to patient, Prescriptions given X 1. 13:54 Patient left the ED. arauz Signatures: Julian Smith PA PA cp Garcia, Rubi rg4 Pushpa Chavez RN RN vg1 Carolynn Santana RN RN arauz
[2021-12-25 14:00] VITALS: BP 119/50; TEMP 97.5; O2SAT 97
== END 2021-12-25 13:54 | disposition home or self-care (01) ==
LOC: ER 13:05
DX: N61.0 Mastitis without abscess (principal); F17.210 Nicotine dependence, cigarettes, uncomplicated; Z79.82 Long term (current) use of aspirin

== ENCOUNTER 2021-12-27 22:21 | Emergency (ER) | payer OTHER ==
--- OUTSIDE RECORDS SUMMARY | 2021-12-27 22:24 | XMS REPORT | Continuity of Care Document ---
:1955 Author Organization [facility] t Address [address] [place] [address] Care Team Providers Name Role Phone Jose [...] Clinicians Facility Department ID 2021-08-01 [facility] 14:25:51 Olaf [id number] [facility] 2021-08-01 [facility] Common 14:23:55 Olaf [id number] [facility] 2021-08-01 [facility] 14:20:29 Olaf [id number] [facility] 2021-08-01 [facility] Common 14:19:55 Olaf [id number] [facility] 2021-08-01 [facility] Common 14:18:43 Olaf [id number] [facility] 2021-08-01 [facility] Common 14:07:17 Olaf [id number] [facility] 2021-08-01 Outpatient Garcia, [facility] [id number] Common 14:06:29 Olaf [id number] [facility] 2021-08-01 Outpatient Garcia, [facility] [id number] Common 14:01:37 Olaf [id number] [facility] 2021-08-01 Outpatient Garcia, [facility] [id number] Common 13:25:31 Olaf [id number] [facility] 2021-08-01 Outpatient Garcia, [facility] [id number] Common 12:30:59 Olaf [id number] [facility] 2021-08-01 Outpatient Garcia, [facility] [id number] Common 12:14:04 Olaf [id number] [facility] 2021-12-25 2021-12-25 ambulatory [facility] [id number] Common 00:00:00 00:00:00 [facility] 2021-12-25 2021-12-25 ambulatory [facility] ST[facility] [id number] Common 00:00:00 00:00:00 [facility] 2021-12-25 2021-12-25 ambulatory [facility] ST[facility] [id number] Common 00:00:00 00:00:00 [facility] 2021-12-25 2021-12-25 ambulatory [facility] ST[facility] [id number] Common 00:00:00 00:00:00 [facility] 2021-12-25 2021-12-25 ambulatory [facility] ST[facility] [id number] Common 00:00:00 00:00:00 [facility] 2021-12-13 2021-12-13 ambulatory [facility] ST[facility] [id number] Common 00:00:00 00:00:00 [facility] 2021-12-06 2021-12-06 ambulatory [facility] ST[facility] [id number] Common 00:00:00 00:00:00 [facility] 2021-11-14 2021-11-14 ambulatory [facility] ST[facility] [id number] Common 00:00:00 00:00:00 [facility] 2021-09-18 2021-09-18 ambulatory [facility] ST[facility] [id number] Common 00:00:00 00:00:00 [facility] 2021-08-21 2021-08-21 ambulatory [facility] ST[facility] [id number] Common 00:00:00 00:00:00 [facility] 2021-08-21 2021-08-21 ambulatory [facility] ST[facility] [id number] Common 00:00:00 00:00:00 [facility] 2021-06-21 2021-06-21 ambulatory [facility] ST[facility] [id number] Common 00:00:00 00:00:00 [facility] 2021-06-19 2021-06-19 ambulatory [facility] ST[facility] [id number] Common 00:00:00 00:00:00 [facility] 2021-06-18 2021-06-18 ambulatory [facility] [id number] Common 00:00:00 00:00:00 [facility] 2021-06-12 2021-06-12 ambulatory [facility] ST[facility] [id number] Common 00:00:00 00:00:00 [facility] 2021-06-12 2021-06-12 ambulatory [facility] ST[facility] [id number] Common 00:00:00 00:00:00 [facility] 2021-06-12 2021-06-12 ambulatory [facility] ST[facility] [id number] Common 00:00:00 00:00:00 [facility] 2021-06-12 2021-06-12 ambulatory [facility] ST[facility] [id number] Common 00:00:00 00:00:00 [facility] 2021-06-11 2021-06-11 ambulatory [facility] ST[facility] [id number] Common 00:00:00 00:00:00 [facility] 2021-06-07 2021-06-07 ambulatory [facility] [id number] Common 00:00:00 00:00:00 [facility] 2021-06-05 2021-06-05 ambulatory [facility] [id number] Common 00:0000 00:00:00 [facility] 2021-06-04 2021-06-04 ambulatory [facility] ST[facility] [id number] Common 00:00:00 00:00:00 [facility] 2021-05-16 2021-05-16 ambulatory [facility] [id number] Common 00:00:00 00:00:00 [facility] 2021-05-04 2021-05-04 Outpatient [facility] [id number] Common 00:00:00 00:00:00 [facility] 2021-04-25 2021-04-25 Outpatient [facility] [id number] Common 00:00:00 00:00:00 [facility] 2021-04-24 2021-04-24 Outpatient [facility] [id number] Common 00:00:00 00:00:00 [facility] 2021-04-13 2021-04-13 Outpatient [facility] [id number] Common 00:00:00 00:00:00 [facility] 2021-04-13 2021-04-13 Outpatient [facility] [id number] Common 00:00:00 00:00:00 [facility] 2021-03-30 2021-03-30 Outpatient [facility] [id number] Common 00:00:00 00:00:00 [facility] 2021-02-19 2021-02-19 Outpatient [facility] [id number] Common 00:00:00 00:00:00 [facility] 2021-01-23 2021-01-23 Outpatient [facility] [id number] Common 00:00:00 00:00:00 [facility] 2021-01-15 2021-01-15 Outpatient [facility] [id number] Common 00:00:00 00:00:00 [facility] 2021-01-12 2021-01-12 Outpatient [facility] [id number] Common 00:00:00 00:00:00 [facility] 2020-11-30 2020-11-30 Outpatient [facility] [id number] Common 00:00:00 00:00:00 [facility] 2020-11-27 2020-11-27 Outpatient [facility] [id number] Common 00:00:00 00:00:00 [facility] 2020-11-23 2020-11-23 Outpatient [facility] [id number] Common 00:00:00 00:00:00 [facility] 2020-11-17 2020-11-17 Outpatient [facility] [id number] Common 00:00:00 00:00:00 [facility] 2020-11-15 2020-11-15 Outpatient [facility] [id number] Common 00:00:00 00:00:00 [facility] 2020-11-02 2020-11-02 Outpatient [facility] [id number] Common 00:00:00 00:00:00 [facility] 2020-10-02 2020-10-02 Outpatient [facility] ST[facility] [id number] Common 00:00:00 00:00:00 [facility] 2020-10-02 2020-10-02 Outpatient [facility] ST[facility] [id number] Common 00:00:00 00:00:00 [facility] Results This patient has no known results.
[2021-12-27] MEDS ORDERED: KETOROLAC 30 MG/ML INJ ONE (23:32)
[2021-12-27] MEDS ORDERED: MORPHINE 2 MG/ML SYR ONE (23:32)
[2021-12-27] MEDS ORDERED: NA CHLORIDE 0.9% 1,000 ML ONE (23:33)
[2021-12-27] MEDS ORDERED: NA CHLORIDE 0.9% 500 ML ONE (23:33)
[2021-12-27] MEDS ORDERED: ONDANSETRON 4 MG/2 ML VIAL ONE (23:33)
[2021-12-27 23:50] LABS: Absolute Lymphocytes (CBC) 2.9 K/uL (0.7-4.9); Hematocrit 46.6 % (36.0-45.0); MPV 8.3 fL (7.6-11.3); RBC Red Blood Cell Count 4.99 M/uL (3.86-4.86)
[2021-12-27 23:53] LABS: Protime INR 0.94
[2021-12-28 00:19] LABS: ALT/SGPT 30 U/L (12-78); AST/SGOT 14 U/L (15-37); Albumin 3.8 g/dL (3.4-5.0); Alkaline Phosphatase 87 U/L (45-117); BUN Blood Urea Nitrogen 16 mg/dL (7-18); Bicarbonate 26 mmol/L (21-32); Bilirubin Total 0.2 mg/dL (0.2-1.0); Glomerular Filtration Rate 80 ml/min (=/>90); Glucose Level 110 mg/dL (74-106); Magnesium 2.2 mg/dL (1.8-2.4); NT PRO-BNP 18 pg/mL (<125); Potassium 3.8 mmol/L (3.5-5.1); Protein, Total 6.9 g/dL (6.4-8.2); Sodium Level 140 mmol/L (136-145)
[2021-12-28 00:35] LABS: Bilirubin Direct < 0.1 mg/dL (0-0.2); Troponin High Sensitivity < 3.0 pg/mL (<58.9)
--- NOTE | 2021-12-28 03:26 | EDPHYS ---
Physician Documentation [facility] Name: Renetta Mckeon Age: 66 yrs Sex: Female : 1955 Arrival Date: 12/27/2021 Time: 22:22 Bed 16 Private MD: ED Physician Julian Gorman HPI: 12/27 23:20 This 66 yrs old Female presents to ER via Ambulatory with complaints of Arm kevin Pain - swelling, Back Pain. 23:20 The patient or guardian complains of decreased range of motion, pain, that is acute. kevin The complaints affect the left bicep, dorsal aspect of left forearm, left tricep and palmar aspect of left forearm. Context: The problem was sustained at an unknown location. Onset: The symptoms/episode began/occurred 1 day(s) ago. Treatment prior to arrival includes: no previous treatment. Modifying factors: The symptoms are alleviated by remaining still, the symptoms are aggravated by movement. Associated signs and symptoms: Pertinent positives: pain, of the left scapular area. Associated signs and symptoms: The patient has no apparent associated signs or symptoms. Severity of symptoms: At their worst the symptoms were mild, moderate, in the emergency department the symptoms are unchanged. The patient has not experienced similar symptoms in the past. Historical: - Allergies: 22:53 NKDA; bh1 - Home Meds: 22:53 Albuterol Inhl [Active]; Aspirin Oral [Active]; atorvastatin Oral [Active]; clopidogrel bh1 Oral [Active]; Folic Acid Oral [Active]; - PMHx: 22:53 Cataracts; COPD; bh1 - PSHx: 22:53 Stented artery; bh1 - Immunization history:: Adult Immunizations up to date. - Social history:: Smoking status: Patient reports the use of cigarette tobacco products, smokes one-half pack cigarettes per day. - Family history:: not pertinent. ROS: 23:20 Constitutional: Negative for fever, chills, and weight loss, Eyes: Negative for injury, kevin pain, redness, and discharge, ENT: Negative for injury, pain, and discharge, Neck: Negative for injury, pain, and swelling, Respiratory: Negative for shortness of breath, cough, wheezing, and pleuritic chest pain, Abdomen/GI: Negative for abdominal pain, nausea, vomiting, diarrhea, and constipation, Back: Negative for injury and pain, : Negative for injury, bleeding, discharge, and swelling, Skin: Negative for injury, rash, and discoloration, Neuro: Negative for headache, weakness, numbness, tingling, and seizure, Psych: Negative for depression, anxiety, suicide ideation, homicidal ideation, and hallucinations, Allergy/Immunology: Negative for hives, rash, and allergies, Endocrine: Negative for neck swelling, polydipsia, polyuria, polyphagia, and marked weight changes, Hematologic/Lymphatic: Negative for swollen nodes, abnormal bleeding, and unusual bruising. 23:20 Cardiovascular: Positive for chest pain. 23:20 MS/extremity: Positive for decreased range of motion, pain, swelling, of the left arm. Exam: 23:20 Constitutional: This is a well developed, well nourished patient who is awake, alert, kevin and in no acute distress. Head/Face: Normocephalic, atraumatic. Eyes: Pupils equal round and reactive to light, extra-ocular motions intact. Lids and lashes normal. Conjunctiva and sclera are non-icteric and not injected. Cornea within normal limits. Periorbital areas with no swelling, redness, or edema. ENT: Nares patent. No nasal discharge, no septal abnormalities noted. Tympanic membranes are normal and external auditory canals are clear. Oropharynx with no redness, swelling, or masses, exudates, or evidence of obstruction, uvula midline. Mucous membranes moist. Neck: Trachea midline, no thyromegaly or masses palpated, and no cervical lymphadenopathy. Supple, full range of motion without nuchal rigidity, or vertebral point tenderness. No Meningismus. Chest/axilla: Normal chest wall appearance and motion. Nontender with no deformity. No lesions are appreciated. Cardiovascular: Regular rate and rhythm with a normal S1 and S2. No gallops, murmurs, or rubs. Normal PMI, no JVD. No pulse deficits. Respiratory: Lungs have equal breath sounds bilaterally, clear to auscultation and percussion. No rales, rhonchi or wheezes noted. No increased work of breathing, no retractions or nasal flaring. Abdomen/GI: Soft, non-tender, with normal bowel sounds. No distension or tympany. No guarding or rebound. No evidence of tenderness throughout. Back: No spinal tenderness. No costovertebral tenderness. Full range of motion. Female : Normal external genitalia. Skin: Warm, dry with normal turgor. Normal color with no rashes, no lesions, and no evidence of cellulitis. Neuro: Awake and alert, GCS 15, oriented to person, place, time, and situation. Cranial nerves II-XII grossly intact. Motor strength 5/5 in all extremities. Sensory grossly intact. Cerebellar exam normal. Normal gait. Psych: Awake, alert, with orientation to person, place and time. Behavior, mood, and affect are within normal limits. 23:20 Musculoskeletal/extremity: Extremities: decreased ROM, pain, ROM: limited active range of motion due to pain, limited passive range of motion due to pain, Circulation is intact in all extremities. Sensation intact. Compartment Syndrome exam of affected extremity: is normal. DVT Exam: negative Homans' sign noted on exam, no appreciated bluish discoloration, no erythema, no increased warmth, pain, swelling, tenderness. 12/28 00:02 ECG was reviewed by the Attending Physician. [facility] Vital Signs: 12/27 22:51 BP 139 / 76; Pulse 74; Resp 18; Temp 98.3(O); Pulse Ox 97% on R/A; Weight 56.7 kg (R); [facility] Height 5 ft. 3 in. (160.02 cm) (R); 23:32 BP 123 / 77; Pulse 88; Resp 18; Pulse Ox 99% on R/A; 1 12/28 00:19 BP 117 / 61 RA Sitting (man/reg); Pulse 65 MON; Resp 16 S; Pulse Ox 94% on R/A; 1 02:10 BP 107 / 56 RA Supine (man/reg); Pulse 63 MON; Resp 15 S; Pulse Ox 94% on R/A; vc1 12/27 22:51 Body Mass Index 22.14 (56.70 kg, 160.02 cm) [facility] MDM: 12/27 22:51 Patient medically screened. [facility] 23:23 Data reviewed: vital signs, nurses notes, lab test result(s), EKG, radiologic studies, [facility] doppler, plain films. Data interpreted: pvc monitor: rate is 74 beats/min, rhythm is regular, Pulse oximetry: on room air is 97 %. Test interpretation: by ED physician or midlevel provider: ECG, plain radiologic studies. Counseling: I had a detailed discussion with the patient and/or guardian regarding: the historical points, exam findings, and any diagnostic results supporting the discharge/admit diagnosis, lab results, radiology results, the need for outpatient follow up, for definitive care, a family practitioner, a director of volunteer services. 12/27 23:06 Order name: Basic Metabolic Panel; Complete Time: 02:28 [facility] 12/27 23:06 Order name: CBC with Diff; Complete Time: 02:28 [facility] 12/27 23:06 Order name: LFT's; Complete Time: 02:28 [facility] 12/27 23:06 Order name: Magnesium; Complete Time: 02:28 [facility] 12/27 23:06 Order name: NT PRO-BNP; Complete Time: 02:28 [facility] 12/27 23:06 Order name: PT-INR; Complete Time: 02:28 [facility] 12/27 23:06 Order name: Troponin HS; Complete Time: 02:28 [facility] 12/27 23:06 Order name: XRAY Chest (1 view) [facility] 12/27 23:06 Order name: CT Aorta for Dissection: ro pe/dissection [facility] 12/27 23:27 Order name: Troponin High Sensitivity: do at 130am; Complete Time: 02:28 [facility] 12/28 01:15 Order name: UPPER EXTREMITY VENOUS UNILATE EDME 12/27 23:06 Order name: EKG; Complete Time: 23:07 [facility] 12/27 23:06 Order name: Cardiac monitoring; Complete Time: 23:41 [facility] 12/27 23:06 Order name: EKG - Nurse/Tech; Complete Time: 23:57 [facility] 12/27 23:06 Order name: IV Saline Lock; Complete Time: 23:41 [facility] 12/27 23:06 Order name: Labs collected and sent; Complete Time: 23:41 [facility] 12/27 23:06 Order name: O2 Per Protocol; Complete Time: 23:41 [facility] 12/27 23:06 Order name: O2 Sat Monitoring; Complete Time: 23:41 [facility] EC/24 00:02 Rate is 63 beats/min. Rhythm is regular. QRS [place] is Normal. SD interval is normal. QRS kevin interval is normal. QT interval is normal. No Q waves. T waves are Normal. No ST changes noted. Clinical impression: NSR w/ Non-specific ST/T Changes and No evidence of ischemia. Interpreted by me. Reviewed by me. Administered Medications: 12/27 23:40 Drug: Ketorolac 15 mg Route: IVP; Site: left antecubital; [facility] 23:47 Follow up: Response: No adverse reaction [facility] 23:40 Drug: morphine 2 mg Route: IVP; Infused Over: 4 mins; Site: left antecubital; 1 23:47 Follow up: Response: No adverse reaction [facility] 23:40 Drug: Zofran (Ondansetron) 4 mg Route: IVP; Site: left antecubital; 1 23:46 Follow up: Response: No adverse reaction [facility] 23:40 Drug: NS 0.9% 1000 ml Route: IV; Rate: 125 ml/hr; Site: left antecubital; [facility] 12/28 03:40 Follow up: IV Status: Completed infusion; IV Intake: 600ml 1 12/27 23:41 Drug: NS 0.9% 500 ml Route: IV; Rate: bolus; Site: left antecubital; [facility] 12/28 00:15 Follow up: IV Status: Completed infusion; IV Intake: 500ml vc 03:40 Drug: Decadron - Dexamethasone 6 mg Route: IVP; Site: left antecubital; vc1 03:40 Follow up: Response: Medication administered at discharge. vc1 03:40 Drug: Valium (diazepam) 5 mg Route: PO; vc1 04:46 Follow up: Response: Medication administered at discharge. vc1 03:47 Not Given (Patient Refused): morphine 2 mg IVP once over 4 mins vc1 Disposition Summary: 12/28/21 03:26 Discharge Ordered Location: Home kevin Problem: new kevin Symptoms: have improved kevin Condition: Fair kevin Diagnosis - Pain in left forearm kevin - Pain in left upper arm kevin - Tobacco abuse counseling kevin - Tobacco use kevin - COPD/ Chronic obstructive pulmonary disease, unspecified kevin Followup: kevin - With: Private Physician - When: 2 - 3 days - Reason: Recheck today's complaints, Continuance of care, Re-evaluation by your physician Followup: kevin - With: Angelo Carrera MD - When: 2 - 3 days - Reason: Recheck today's complaints, Continuance of care, Re-evaluation by your physician Discharge Instructions: - Discharge Summary Sheet kevin - Nonspecific Chest Pain, Adult kevin - Chest Wall Pain kvein - Chronic Bronchitis, Adult kevin - Chronic Obstructive Pulmonary Disease kevin - Steps to Quit Smoking kevin - Health Risks of Smoking kevin - Chest Wall Pain, [id number] kevin - Nonspecific Chest Pain, Adult, [id number] kevin - Aspirin and Your Heart [facility] Forms: - Medication Reconciliation Form [facility] - Thank You Letter kevin - Antibiotic Education kevin - Prescription Opioid Use [facility] Prescriptions: - Motrin IB 200 mg Oral Tablet - take 2 tablet by ORAL route every 6 hours As needed as needed with food; 30 kevin tablet; Refills: 0, Product Selection Permitted - Tylenol-Codeine #3 300 mg-30 mg Oral - take 2 tablet by ORAL route every 6 hours; 24 tablet; Refills: 0, Product kevin Selection Permitted - dexamethasone 2 mg Oral tablet - take 1 tablet by ORAL route 2 times per day; 10 tablet; Refills: 0, Product kevin Selection Permitted - Valium 2 mg Oral Tablet - take 1 tablet by ORAL route every 8 hours As needed; 20 tablet; Refills: 0, kevin Product Selection Permitted Signatures: Dispatcher [employer] Julian Pederson MD MD cha Calcote, Vanessa RN RN vc1 Ciara Curry RN RN bh1 Corrections: (The following items were deleted from the chart) 01:15 12/27 23:07 Extremity Venous [email or web address] ordered. GUEVARA WATERMAN
--- NOTE | 2021-12-28 03:26 | ER ---
Nurse's Notes [facility] Name: Renetta Mckeon Age: 66 yrs Sex: Female : 1955 Arrival Date: 12/27/2021 Time: 22:22 Bed 16 Private MD: Diagnosis: Pain in left forearm;Pain in left upper arm;Tobacco abuse counseling;Tobacco use;COPD/ Chronic obstructive pulmonary disease, unspecified Presentation: 12/27 22:51 Chief complaint: Patient states: REPORTS COMING TO ER YESTERDAY FOR A NODULE ON BREAST [facility] WITH PAIN AND NOW STATES THE SWELLING IS RUNNING DOWN HER ARM AND THE PAIN IS IN HER LEFT SIDE. Coronavirus screen: Vaccine status: Patient reports receiving the 2nd dose of the covid vaccine. Client denies travel out of the [place] in the last 14 days. At this time, the client does not indicate any symptoms associated with coronavirus-19. Ebola Screen: Patient negative for fever greater than or equal to 101.5 degrees Fahrenheit, and additional compatible Ebola Virus Disease symptoms. Initial Sepsis Screen: Does the patient meet any 2 criteria? No. Patient's initial sepsis screen is negative. Does the patient have a suspected source of infection? No. Patient's initial sepsis screen is negative. Risk Assessment: Do you want to hurt yourself or someone else? Patient reports no desire to harm self or others. Onset of symptoms was December 24, 2021. 22:51 Method Of Arrival: Ambulatory [facility] 22:51 Acuity: LEE 4 [facility] Triage Assessment: 22:54 General: Appears in no apparent distress. uncomfortable, Behavior is calm, cooperative, [facility] appropriate for age. Pain: Complains of pain in LEFT ARM AND LEFT SIDE Pain does not radiate. Pain currently is 8 out of 10 on a pain scale. Musculoskeletal: Circulation, motion, and sensation intact. Capillary refill Range of motion: limited in left shoulder. Historical: - Allergies: 22:53 NKDA; [facility] - Home Meds: 22:53 Albuterol Inhl [Active]; Aspirin Oral [Active]; atorvastatin Oral [Active]; clopidogrel bh1 Oral [Active]; Folic Acid Oral [Active]; - PMHx: 22:53 Cataracts; COPD; [facility] - PSHx: 22:53 Stented artery; bh1 - Immunization history:: Adult Immunizations up to date. - Social history:: Smoking status: Patient reports the use of cigarette tobacco products, smokes one-half pack cigarettes per day. - Family history:: not pertinent. Screenin:57 Abuse screen: Denies threats or abuse. Nutritional screening: No deficits noted. [facility] Tuberculosis screening: No symptoms or risk factors identified. Fall Risk None identified. Assessment: 22:56 Reassessment: No changes from previously documented assessment. General: Appears in no [facility] apparent distress. Behavior is calm, cooperative, appropriate for age. Neuro: No deficits noted. 12/28 00:17 Reassessment: Patient and/or family updated on plan of care and expected duration. Pain vc1 level reassessed. Patient is alert, oriented x 3, equal unlabored respirations, skin warm/dry/pink. Neuro: Level of Consciousness is awake, alert, obeys commands, Oriented to person, place, time, situation, Appropriate for age. 01:00 Reassessment: Patient and/or family updated on plan of care and expected duration. Pain vc1 level reassessed. Patient is alert, oriented x 3, equal unlabored respirations, skin warm/dry/pink. States pain to arm is gone but her shoulder still hurts with movement Patient states symptoms have improved. 02:00 Reassessment: No changes from previously documented assessment. Patient and/or family vc1 updated on plan of care and expected duration. Pain level reassessed. Patient is alert, oriented x 3, equal unlabored respirations, skin warm/dry/pink. Vital Signs: 12/27 22:51 BP 139 / 76; Pulse 74; Resp 18; Temp 98.3(O); Pulse Ox 97% on R/A; Weight 56.7 kg (R); 1 Height 5 ft. 3 in. (160.02 cm) (R); 23:32 BP 123 / 77; Pulse 88; Resp 18; Pulse Ox 99% on R/A; 1 12/28 00:19 BP 117 / 61 RA Sitting (man/reg); Pulse 65 MON; Resp 16 S; Pulse Ox 94% on R/A; vc1 02:10 BP 107 / 56 RA Supine (man/reg); Pulse 63 MON; Resp 15 S; Pulse Ox 94% on R/A; vc1 12/27 22:51 Body Mass Index 22.14 (56.70 kg, 160.02 cm) [facility] ED Course: 12/27 22:22 Patient arrived in ED. as 22:40 Ciara Curry, VALDEMAR is Primary Nurse. bh1 22:51 Julian Gorman MD is Attending Physician. kevin 22:53 Triage completed. bh1 22:54 Arm band placed on right wrist. bh1 22:57 Patient has correct armband on for positive identification. Pulse ox on. NIBP on. bh1 22:58 No apparent distress. Awaiting ED provider evaluation. bh1 22:58 No provider procedures requiring assistance completed. bh1 23:29 XRAY Chest (1 view) In Process Unspecified. EDMS 23:33 No apparent distress. Resting quietly. Awaiting lab results. bh1 23:41 Basic Metabolic Panel Sent. bh1 23:41 CBC with Diff Sent. bh1 23:41 LFT's Sent. bh1 23:41 Magnesium Sent. bh1 23:41 NT PRO-BNP Sent. bh1 23:41 PT-INR Sent. bh1 23:41 Troponin HS Sent. bh1 23:42 Inserted saline lock: 20 gauge in left antecubital area, using aseptic technique. Blood 1 collected. 12/28 01:07 CT Aorta for Dissection: ro pe/dissection In Process Unspecified. EDMS 02:00 UPPER EXTREMITY VENOUS UNILATE In Process Unspecified. EDMS 03:25 Angelo Carrera MD is Referral Physician. kevin 03:48 IV discontinued, intact, bleeding controlled, No redness/swelling at site. Pressure vc1 dressing applied. Administered Medications: 12/27 23:40 Drug: Ketorolac 15 mg Route: IVP; Site: left antecubital; bh1 23:47 Follow up: Response: No adverse reaction 1 23:40 Drug: morphine 2 mg Route: IVP; Infused Over: 4 mins; Site: left antecubital; bh1 23:47 Follow up: Response: No adverse reaction [facility] 23:40 Drug: Zofran (Ondansetron) 4 mg Route: IVP; Site: left antecubital; 1 23:46 Follow up: Response: No adverse reaction [facility] 23:40 Drug: NS 0.9% 1000 ml Route: IV; Rate: 125 ml/hr; Site: left antecubital; [facility] 12/28 03:40 Follow up: IV Status: Completed infusion; IV Intake: 600ml [facility] 12/27 23:41 Drug: NS 0.9% 500 ml Route: IV; Rate: bolus; Site: left antecubital; [facility] 12/28 00:15 Follow up: IV Status: Completed infusion; IV Intake: 500ml vc 03:40 Drug: Decadron - Dexamethasone 6 mg Route: IVP; Site: left antecubital; [facility] 03:40 Follow up: Response: Medication administered at discharge. vc1 03:40 Drug: Valium (diazepam) 5 mg Route: PO; vc1 04:46 Follow up: Response: Medication administered at discharge. vc1 03:47 Not Given (Patient Refused): morphine 2 mg IVP once over 4 mins [facility] Medication: 12/27 22:57 VIS not applicable for this client. [facility] Intake: 12/28 00:15 IV: 500ml; Total: 500ml. vc1 03:40 IV: 600ml; Total: 1100ml. vc1 Outcome: 03:26 Discharge ordered by MD. brown 03:47 Discharged to home ambulatory, with family. vc1 03:47 Condition: good 03:47 Discharge instructions given to patient, Instructed on discharge instructions, follow up and referral plans. medication usage, Demonstrated understanding of instructions, follow-up care, medications, Prescriptions given X 4. 03:48 Patient left the ED. vc1 Signatures: Dispatcher [employer] Julian Pederson MD MD cha Martinez, Amelia as Calcote, Vanessa, RN RN [facility] Ciara Curry RN RN [facility]
[2021-12-28] MEDS ORDERED: dexAMETHasone 10 MG/ML VIAL ONE (03:36)
[2021-12-28] MEDS ORDERED: DIAZEPAM 5 MG TABLET ONE (03:36)
[2021-12-28 03:56] VITALS: TEMP 98.3
[2021-12-28 04:00] VITALS: O2SAT 94
[2021-12-28 04:04] VITALS: BP 107/56
--- NOTE | 2021-12-28 11:31 | RAD REPORT ---
EXAM DESCRIPTION: UPPER EXTREMITY VENOUS UNILATE 12/28/2021 2:12 AM CDT CLINICAL HISTORY: 66 years, Female, PAIN COMPARISON: None FINDINGS: Multiple grayscale images as well as duplex Doppler ultrasound of left upper extremity wer e performed. Left internal jugular vein, left subclavian vein, left axillary vein, left brachial vein, left radial vein and left ulnar vein were imaged. Spectral waveform demonstrate normal compressibility, phasic ity and augmentation. No intraluminal defects were seen. Unremarkable left cephalic and basilic vein with no evidence for superficial thrombophlebitis. IMPRESSION: No evidence of left upper extremity DVT. Electronically signed by: Suman Diaz MD 12/28/2021 2:13 AM CDT Due to temporary technical issues with the PACS/Fluency reporting system, reports are being signed by the in house radiologist without review as a courtesy to ensure prompt reporting. The interpreting r adiologist is fully responsible for the content of the report.
--- NOTE | 2021-12-28 11:33 | RAD REPORT ---
EXAM DESCRIPTION: ADDENDUM #1 Addendum: There is good opacification of the pulmonary arteries with no evidence for significant filling defect s that will suggest pulmonary embolus. Electronically signed by: Suman Diaz MD 12/28/2021 3:06 AM CDT End of Addendum EXAM DESCRIPTION: Angio Aorta For Dissection 12/28/2021 1:37 AM CDT CLINICAL HISTORY: 66 years, Female, chest pain COMPARISON: 11/15/2020. TECHNIQUE: Multiple transaxial tomograms from the thoracic and abdominal aorta from the lung apex to the ischial tuberosities performed after the administration of large bolus of IV contrast for comple te opacification of the thoracic, abdominal aorta and iliac arteries utilizing 3 mm slice thickness a t 3. 2-D and 3-D multiplanar reformats, volume rendering technique and maximum intensity projection images were generated and reviewed. This exam was performed according to our departmental dose-optimization protocol, which includes auto mated exposure control, adjustment of the mA and/or kV according to patient size and/or use of iterat braydon reconstruction technique. FINDINGS: Thoracic aorta: The thoracic aorta demonstrate no evidence for dissection/or aneurysm. Very minimal intimal calcifica tion. Normal branching pattern of the great vessels. Abdominal aorta: Abdominal aorta demonstrate minimal atherosclerotic disease infrarenal portion extending into the aor tic bifurcation. There is no evidence for aneurysm/or dissection. No focal areas of significant steno sis within the iliac arteries. The visceral branches demonstrate normal appearance with no evidence for stenosis/or abnormalities. CHEST: The lung parenchyma centrilobular emphysematous changes. No evidence for significant pulmonar y nodules/or consolidations. Minimal atelectatic changes lung bases. The trachea mainstem bronchus de monstrate to be unremarkable. There is no pleural/or pericardial effusions the heart is normal in siz e. There is no significant mediastinal and/or hilar lymphadenopathy. The axillary regions demonstrate to be clear. The bone windows demonstrate no significant skeletal lesions. Abdomen and pelvis: The liver, gallbladder, spleen, adrenal glands, pancreas demonstrate to be unrema rkable. The kidneys demonstrate normal uptake of contrast media. There is no evidence for nephrolithiasis/or hydronephrosis. The bowel demonstrate to be unremarkable. There is mild fecal stasis. The urinary bladder is normal. The uterus is absent. No adnexal masses are seen. There is no evidence for retroperitoneal lymphadenopathy/or ascites. The bone windows is unremarkable. IMPRESSION: No evidence for thoracic or abdominal aortic aneurysm and/or dissection. Centrilobular emphysematous changes. Mild fecal stasis. Status post hysterectomy. Electronically signed by: Suman Diaz MD 12/28/2021 1:43 AM CDT Due to temporary technical issues with the PACS/Fluency reporting system, reports are being signed by the in house radiologist without review as a courtesy to ensure prompt reporting. The interpreting r adiologist is fully responsible for the content of the report.
--- NOTE | 2021-12-28 11:35 | RAD REPORT ---
EXAM DESCRIPTION: Chest Single View 12/27/2021 11:37 PM CDT CLINICAL HISTORY: 66 years, Female, Cough COMPARISON: None. FINDINGS: Single view of the chest was obtained portable. No prior films are available for compariso n. The cardiomediastinal silhouette demonstrate to be unremarkable. The heart is in the upper nabil l size. The thoracic aorta demonstrate intimal calcification. There is hyperinflation. Costophrenic a ngles are sharp. No areas of consolidation or masses are seen. The rest of the soft tissue and [place] structures demonstrate to be unremarkable. IMPRESSION: Hyperinflation. Borderline cardiomegaly. Electronically signed by: Suman Diaz MD 12/27/2021 11:38 PM CDT Due to temporary technical issues with the PACS/Fluency reporting system, reports are being signed by the in house radiologist without review as a courtesy to ensure prompt reporting. The interpreting r adiologist is fully responsible for the content of the report.
--- NOTE | 2021-12-29 17:31 | EKG ---
Test Date: 2021-12-27 Test Time: 23:51:00 Executive Associate: MEASUREMENT RESULTS: Intervals: Rate: 63 ME: 162 QRSD: 72 QT: 426 QTc: 435 [place]: P: 63 ME: 162 QRS: 68 T: 47 INTERPRETIVE STATEMENTS: Normal sinus rhythm Low voltage QRS Cannot rule out Anterior infarct, age undetermined Abnormal ECG Compared to ECG 08/21/2021 12:47:45 No significant changes Electronically Signed On 12-29-21 17:28:42 CDT by Selvin Wellington
== END 2021-12-28 03:48 | disposition home or self-care (01) ==
LOC: ER 22:21
DX: M79.632 Pain in left forearm (principal); M79.622 Pain in left upper arm; J44.9 Chronic obstructive pulmonary disease, unspecified; Z72.0 Tobacco use; Z71.6 Tobacco abuse counseling; Z79.82 Long term (current) use of aspirin
CPT/HCPCS: 96361; 93005; 85025; 80048; 36415; 83735; 85610; 80076; 84484 ×2; 83880; 71275; 74175; 71045; 93971; 96375; 96374; 99284; Q9967; J1100; J2270; J7040; J7030; J2405